=== PATIENT | female | born 1990 | race Caucasian/White ===

== ENCOUNTER 2024-06-05 12:55 | Outpatient (CLI) | payer BC, SELFPAY ==
--- NOTE | 2024-06-05 13:00 | CRLHL7_ITS ---
For Patients: As a result of the Cures Act, medical imaging exams and procedure reports are released immediately into your electronic medical record. You may view this report before your referring provider. If you have questions, please contact your health care provider. INDICATION: First trimester scan, establish dates. COMPARISON: None. TECHNIQUE: Real-time munoz-scale imaging of the pelvis was performed. FINDINGS: Sonographic imaging demonstrates a single living intrauterine gestation. The embryo demonstrates a regular cardiac rate measuring 169 beats per minute. The embryo`s crown-rump length measurement of 2.3 cm corresponds to a gestational age of 9 weeks 0 days with a sonographic due date of 01/08/2025. There is a normal-appearing yolk sac. There are no gross abnormalities noted within the embryo at this early state of development. The gestational sac has a normal appearance. There is a 9 x 7 x 2 millimeter perigestational hemorrhage. The amount of fluid within the sac appears appropriate for gestational age. The cervix is closed. The myometrium appears normal. The ovaries are of normal size. Corpus luteal cyst right ovary. There are no suspicious fluid collections noted in the cul-de-sac. IMPRESSION: Single living intrauterine with sonographic gestational age 9 weeks 0 days and sonographic due date of 01/08/2025. Subchorionic hemorrhage measures 9 x 7 x 2 millimeters. Dictated by Skip Jenkins MD @ 06/09/2024 6:14:56 AM (Electronically Signed)
== END 2024-06-05 12:56 | disposition home or self-care (01) ==
LOC: US 12:56
PROVIDERS: PCP Family Medicine; Visit Provider Registered Nurse
DX: Z34.91 Encounter for supervision of normal pregnancy, unspecified, first trimester (principal); Z3A.09 9 weeks gestation of pregnancy
CPT/HCPCS: 76817; 82565; 82570; 84156; 84450; 84460; 84520; 86703; 86706; 86803; 86850; 86900; 86901; 87086; 87340; 87491; 87591

== ENCOUNTER 2024-06-05 14:24 | Outpatient (CLI) | payer BC, SELFPAY ==
--- OUTSIDE RECORDS SUMMARY | 2024-06-05 14:30 | XMS_ITS | Clinical Summary ---
Author Organization [facility] Address [address] [place] [address] Care Team Providers Care Virtual Assistant Name Role Phone Katt Ramirez MD Primary Care Provider +1- [phone] Shaylee Guillaume MD Unavailable Allergies Active Allergy Reactions Criticality Noted Date Comments Ragweeds Unknown 04/24/2013 Medications Medication Sig Dispensed Refills Start Date End Date Status MEDICATION CANNOT BE REORDERED - PLEASE MANUALLY REORDER AND DISCONTINUE THE OLD ORDER [SULFURIC ACID-SULFONAT. PHENOL (DEBACTEROL) 30-50 % SOLN] Debacterol 30-50 % Mouth/Throat Solution. Apply once to canker sore PRN. 10/06/2014 Active hydrocortisone (CORTAID) 1 % external ointmentIndications: Eczema, unspecified type Apply topically nightly as needed (eczema) 56 g 09/22/2022 Active Additional Information Patient not taking.Reported on 10/16/2023 Active Problems No known active problems Immunizations Name Administration Dates Next Due DT (PEDS <7y) 12/24/2002 DTAP (<7y) 10/01/1995, 2,03/25/1991,01/22,1990 DTaP, Unspecified 10/01/1995, 2,03/25/1991,01/22,1990 Flu, Unspecified 09/05/2016, 5,06/02/2014,06/06 HEPATITIS A (PEDS 12M-18Y) 10/26/2006 HIB(PRP-OMP)(PedvaxHIB) 09/30/1992,09/18,02/21/1991,11/23 HIB, Unspecified 09/30/1992, 2,02/21/1991,11/23 HPV Quadrivalent 05/16/2007,03/07/2007, 7 HepA, Unspecified 05/16/2007,10/26/2006 HepB, Unspecified 02/23/1994,08/29/1993,04/21/19 93 Hepatitis A (ADULT 19+) 05/16/2007 Hepatitis B, Adult 02/23/1994,08/29/1993, 993 Influenza (IIV3) PF 06/02/2014,06/06/2008 Influenza Vaccine >6 months,quad, PF 09/22/2022 Influenza Vaccine, 6+MO IM (QUADRIVALENT W/PRESERVATIVES) 09/05/2016,06/21/2015 MMR 04/22/2009,10/01/1995 Meningococcal ACWY (Menactra??) 10/26/2006 OPV, trivalent, live 10/01/1995,03/18/19 92,03/25/1991,01/22,1990 TD,PF 7+ (Tenivac) 09/05/2016 TDAP (Adacel,Boostrix) 10/31/2017,10/26/2006 Family History Medical History Relation Comments No Known Problems Brother Hyperlipidemia Father Chronic Obstructive Pulmonary Disease Maternal G randfather Other Cancer Maternal Grandmother Breast Cancer Mother Diabetes Mother Hyperlipidemia Mother Hypertension Mother Heart Disease Paternal Grandfather Lung Cancer Paternal Grandmother Relation Status Comments Brother Alive Father Alive Maternal Grandfather Maternal Grandmother Mother Alive Other uterine cancer Paternal Grandfather Paternal Grandmother Social History Tobacco Use Types Packs/Day Years Used Date Smoking Tobacco: Never Smokeless Tobacco: Never Tobacco Cessation:Counseling Given: Not Answered Alcohol Use Standard Drinks/Week Comments Yes 0 (1 standard drink = 0.6 oz pur e alcohol) 1 drink/month Social Connection and Isolat ion Panel [NHANES] Answer Date Recorded In a typical week, how many times do you talk on the phone with family, friends, or neighbors? Three times a week 10/15/2023 How often do you get togethe r with friends or relatives? Once a week 10/15/2023 How often do you attend chur ch or lutheran services? Never 10/15/2023 Do you belong to any clubs o r organizations such as latter day groups, unions, fraternal or athletic groups, or school groups? Yes 10/15/2023 How often do you attend meet ings of the clubs or organizations you belong to? More than 4 times per year 10/15/2023 Are you , , di vorced, , never , or living with a partner? 10/15/2023 AUDIT-C Answer Date Recorded Q1: How often do you have a drink containing alc ohol? Monthly or less 10/15/2023 Q2: How many drinks containi ng alcohol do you have on a typical day when you are drinking? 1 or 2 10/15/2023 Q3: How often do you have si x or more drinks on one occasion? Never 10/15/2023 PHQ-2 Answer Date Recorded PHQ-2 Score 0 10/16/2023 [facility] - Occupational Stress Questionnaire Answer Date Recorded Do you feel stress - tense, restless, nervous, or anxious, or unable to sleep at night because your mind is troubled all the time - these days? Only a little 10/15/2023 Exercise Vital Sign Answer Date Recorde d On average, how many days pe r week do you engage in moderate to strenuous exercise (like a brisk walk)? 5 days 10/15/2023 On average, how many minutes do you engage in exercise at this level? 40 min 10/15/2023 Adolescent Education Answer Date Record ed Getting School Help Needed Not on file 05/12 Food Insecurity Answer Date Recorded Within the past 12 months, d id you worry that your food would run out before you got money to buy more? No 10/15/2023 Within the past 12 months, d id the food you bought just not last and you didn? t have money to get more? No 10/15/2023 Housing Stability Answer Date Recorded Do you have housing? (Mellisa g is defined as stable permanent housing and does not include staying ouside in a car, in a tent, in an abandoned building, in an overnight mcfp, or couch-surfing.) Yes 10/15/2023 Are you worried about losing your housing? No 10/15/2023 Financial Resource Strain Answer Date R ecorded Within the past 12 months, h ave you or your family members you live with been unable to get utilities (heat, electricity) when it was really needed? No 10/15/2023 Transportation Needs Answer Date Record ed Within the past 12 months, h as lack of transportation kept you from medical appointments, getting your medicines, non-medical meetings or appointments, work, or from getting things that you need? No 10/15/2023 Interpersonal Safety Answer Date Record ed Do you feel physically and e motionally safe where you currently live? Yes 10/16/2023 Within the past 12 months, h ave you been hit, slapped, kicked or otherwise physically hurt by someone? No 10/16/2023 Within the past 12 months, h ave you been humiliated or emotionally abused in other ways by your partner or ex-partner? No 10/16/2023 Sex and Gender Information Value Date Recorded Sex Assigned at Not on file Gender Identity Not on file Sexual Orientation Not on file Last Filed Vital Signs Vital Sign Reading Time Taken Comments Blood Pressure 122/80 10/16/2023 7:45 AM OBEDIENCE TRAINER Pulse 62 10/16/2023 7:45 AM OBEDIENCE TRAINER Temperature 36.4 ??C (97.5 ??F) 10/16/2023 7:45 AM CS T Respiratory Rate 12 10/16/2023 7:45 AM OBEDIENCE TRAINER Oxygen Saturation 100% 10/16/2023 7:45 AM OBEDIENCE TRAINER Inhaled Oxygen Concentration - - Weight 62.1 kg (137 lb) 10/16/2023 7:45 AM OBEDIENCE TRAINER Height 161.3 cm (5' 3.5) 10/16/2023 7:45 AM OBEDIENCE TRAINER Body Mass Index 23.89 10/16/2023 7:45 AM OBEDIENCE TRAINER Plan of Treatment Health Maintenance Due Date Last Done Comments HIV SCREENING 2005 COVID-19 Vaccine ( season) 2024 07/12/2021 INFLUENZA VACCINE (#1) 2024 , 09/05/2016, 09/05/2016, Additional history exists ANNUAL REVIEW OF HM ORDERS 10/16/2024 10/16/2023 YEARLY PREVENTIVE VISIT 10/16/2024 10/16/19 24, 09/22/2022, 10/31/2017, Additional history exists HPV TEST 09/22/2025 09/22/2022, 04/24/2013 PAP 09/22/2025 09/22/2022, 10/18, 10/31/2017, Additional history exists ADVANCE CARE PLANNING 09/22/2027 09/22/2022 DTAP/TDAP/TD IMMUNIZATION (9 - Td or Tdap) 11/01/2027 10/31/2017, 09/05/2016, 10/26/2006, Additional history exists RSV VACCINE (1 - 1-dose 75+ series) 2065 HEPATITIS B IMMUNIZATION Completed 994, 02/23/1994, 08/29/1993, Additional history exists MENINGITIS IMMUNIZATION Completed 10/26/2006 HPV IMMUNIZATION Completed 09/05/2016, , 03/07/2007, Additional history exists PHQ-2 (once per calendar year) Completed 10/16/2023, 09/22/2022 HEPATITIS C SCREENING Discontinued Pneumococcal Vaccine: Pediatrics (0 to 5 Years) and At-Risk Patients (6 to 64 Years) Aged Out No longer eligible based on patient's age to complete this topic RSV MONOCLONAL ANTIBODY Aged Out No l onger eligible based on patient's age to complete this topic Procedures Procedure Name Priority Date/Time Associated Diagnosis Comments GYNECOLOGIC CYTOLOGY Routine 09/22/2022 8:01 AM OBEDIENCE TRAINER Screening for condition HPV HIGH RISK TYPES DNA CERVICAL Routine 09/22/2022 8:01 AM OBEDIENCE TRAINER Screening for condition from Last 3 Months or Most Recently Relevant to Health Maintenance Results * Pap screen with HPV - recommended age 30 - 65 years (09/22/2022 8:01 AM OBEDIENCE TRAINER) Interpretation Negative for Intraepithelial Lesion or Malignancy (NILM) 09/26/2022 3:10 PM OBEDIENCE TRAINER [facility] Comment Papanicolaou Test Limitations: Cervical cytology is a screening test with limited sensitivity, and regular screening is critical for cancer prevention. Pap tests are primarily effective for the diagnosis/prevent ion of squamous cell carcinoma, not adenocarcinoma or other cancers. 09/26/2022 3:10 PM OBEDIENCE TRAINER [facility] Specimen Adequacy Satisfactory for evaluation, endocervical/wilson sformation zone component present 09/26/2022 3:10 PM OBEDIENCE TRAINER [facility] Clinical Information none 09/26/2022 3:10 PM OBEDIENCE TRAINER [facility] LMP/Menopause Date 08/29/2022 09/26/2022 3:10 PM OBEDIENCE TRAINER [facility] Reflex Testing Yes regardless of result 09/26/2022 3:10 PM OBEDIENCE TRAINER [facility] Previous Abnormal? No 09/26/2022 3:10 PM OBEDIENCE TRAINER [facility] Performing Labs The technical component of this testing was completed at [facility] 09/26/2022 3:10 PM OBEDIENCE TRAINER [facility] Brushing CERVIX UTERI STRUCTURE / Unknown Non-blood Collection / Unknown 09/22/2022 8:01 AM OBEDIENCE TRAINER 09/22/2022 8:07 AM OBEDIENCE TRAINER Shaylee [facility] Specialty Lab [address] [facility], [address] [place] [id number], [facility] [phone] * HPV High Risk Types DNA Cervical (09/22/2022 8:01 AM OBEDIENCE TRAINER) Other HR HPV Negative Negative 09/28/2022 1:34 PM OBEDIENCE TRAINER [facility] HPV16 DNA Negative Negative 09/28/2022 1:34 PM OBEDIENCE TRAINER [facility] HPV18 DNA Negative Negative 09/28/2022 1:34 PM OBEDIENCE TRAINER [facility] FINAL DIAGNOSIS This patient's sample is negative for HPV DNA. This test was developed and its performance characteristics determined by the [facility], Molecular Diagnostics Laboratory. It has not been cleared or approved by the FDA. The laboratory is regulated under CLIA as qualified to perform high-complexity testing. This test is used for clinical purposes. It should not be regarded as investigational or for research. METHODOLOGY: The Mio Penny 4800 system uses automated extraction, simultaneous amplification of HPV (L1 region) and beta-globin, followed by real time detection of fluorescent labeled HPV and beta globin using specific oligonucleotide probes. The test specifically identifies types HPV 16 DNA and HPV 18 DNA while concurrently detecting the rest of the high risk types (31, 33, 35, 39, 45, 51, 52, 56, 58, 59, 66 or 68). COMMENTS: This test is not intended for use as a screening device for woman under age 30 with normal cervical cytology. Results should be correlated with cytologic and histologic findings. Close clinical followup is recommended. 09/28/2022 1:34 PM OBEDIENCE TRAINER [facility] Brushing CERVIX UTERI STRUCTURE / Unknown Non-blood Collection / Unknown 09/22/2022 8:01 AM OBEDIENCE TRAINER 09/27/2022 9:42 AM OBEDIENCE TRAINER Shaylee Guillaume MD LAB - BLOOD ORDERABL ES [facility] Molecular Diagnostics [address] [facility], [address] [phone], [facility] [phone] from Last 3 Months or Most Recently Relevant to Health Maintenance Care Teams Virtual Assistant Relationship Specialty Start Date End Date Katt Ramirez MD [address] [place] [address] PCP - General Family Practice 10/12/14 [place] [address] [place] [address] Assigned PCP 08/30/22
--- OUTSIDE RECORDS SUMMARY | 2024-06-05 14:30 | XMS_ITS | Referral Summary ---
Author Organization [facility] Address [address] [place] [address] Care Team Providers Care Pharmacy Delivery Driver Name Role Phone Katt Ramirez MD Primary Care Provider +1- [phone] Shaylee Guillaume MD Unavailable Allergies Active Allergy [...] TD,PF 7+ (Tenivac) 09/05/2016 TDAP (Adacel,Boostrix) 10/31/2017,10/26/2006 Social History Tobacco Use Types Packs/Day Years [...] week 10/15/2023 How often do you attend [facility] or samaritan services? Never 10/15/2023 Do you belong to any clubs o r organizations such as buddhism groups, unions, fraternal or athletic groups, or [...] Answer Date Recorded PHQ-2 Score 0 10/16/2023 [facility] - Occupational Stress [...] Answer Date Recorded Do you have housing? (Housin g is defined as stable permanent housing and does not include staying ouside in a car, in a tent, in an abandoned building, in an overnight intermediate, or couch-surfing.) Yes 10/15/2023 Are you worried [...] Comments Blood Pressure 122/80 10/16/2023 7:45 AM HARP MAKER Pulse 62 10/16/2023 7:45 AM HARP MAKER Temperature 36.4 ??C (97.5 ??F) 10/16/2023 7:45 AM CS T Respiratory Rate 12 10/16/2023 7:45 AM HARP MAKER Oxygen Saturation 100% 10/16/2023 7:45 AM HARP MAKER Inhaled Oxygen Concentration - - Weight 62.1 kg (137 lb) 10/16/2023 7:45 AM HARP MAKER Height 161.3 cm (5' 3.5) 10/16/2023 7:45 AM HARP MAKER Body Mass Index 23.89 10/16/2023 7:45 AM HARP MAKER Plan of Treatment Not on file Procedures Procedure Name Priority Date/Time Associated Diagnosis Comments GYNECOLOGIC CYTOLOGY Routine 09/22/2022 8:01 AM HARP MAKER Screening for condition HPV HIGH RISK TYPES DNA CERVICAL Routine 09/22/2022 8:01 AM HARP MAKER Screening for condition from Last 3 Months or Most Recently Relevant to Health Maintenance Results * Pap screen with HPV - recommended age 30 - 65 years (09/22/2022 8:01 AM HARP MAKER) Interpretation Negative for Intraepithelial Lesion or Malignancy (NILM) 09/26/2022 3:10 PM HARP MAKER [facility] Comment Papanicolaou Test Limitations: Cervical cytology is a screening test with limited sensitivity, and regular screening is critical for cancer prevention. Pap tests are primarily effective for the diagnosis/prevent ion of squamous cell carcinoma, not adenocarcinoma or other cancers. 09/26/2022 3:10 PM HARP MAKER [facility] Specimen Adequacy Satisfactory for evaluation, endocervical/wilson sformation zone component present 09/26/2022 3:10 PM HARP MAKER [facility] Clinical Information none 09/26/2022 3:10 PM HARP MAKER [facility] LMP/Menopause Date 08/29/2022 09/26/2022 3:10 PM HARP MAKER [facility] Reflex Testing Yes regardless of result 09/26/2022 3:10 PM HARP MAKER [facility] Previous Abnormal? No 09/26/2022 3:10 PM HARP MAKER [facility] Performing Labs The technical component of this testing was completed at [facility] 09/26/2022 3:10 PM [facility] Brushing CERVIX UTERI STRUCTURE / Unknown Non-blood Collection / Unknown 09/22/2022 8:01 AM HARP MAKER 09/22/2022 8:07 AM HARP MAKER Sh[facility]lee [facility] Specialty Lab [address] [facility], [address] [phone], [facility] [phone] * HPV High Risk Types DNA Cervical (09/22/2022 8:01 AM HARP MAKER) Other HR HPV Negative Negative 09/28/2022 1:34 PM HARP MAKER [facility] HPV16 DNA Negative Negative 09/28/2022 1:34 PM HARP MAKER [facility] HPV18 DNA Negative Negative 09/28/2022 1:34 PM HARP MAKER [facility] FINAL DIAGNOSIS This patient's sample is negative for HPV DNA. This test was developed and its performance characteristics determined by the [facility], Molecular Diagnostics Laboratory. It has not been [...] clinical followup is recommended. 09/28/2022 1:34 PM HARP MAKER [facility] Brushing CERVIX UTERI STRUCTURE / Unknown Non-blood Collection / Unknown 09/22/2022 8:01 AM HARP MAKER 09/27/2022 9:42 AM HARP MAKER Shaylee Guillaume MD LAB - BLOOD ORDERABL ES [facility] Molecular [facility] [address] [facility], [address] [place] [phone], [facility] [phone] from Last 3 Months or Most Recently Relevant to Health Maintenance Care Teams Pharmacy Delivery Driver Relationship Specialty Start Date End Date Katt Ramirez MD [address] [place] [address] PCP - General Family Practice 10/12/14 [place] [address] [place] [address] Assigned PCP 08/30/22
[2024-06-05 19:12] LABS: Chlamydia DNA Amplified* NOT DETECTED (No Detected); GC DNA Amplified* NOT DETECTED (No Detected)
== END 2024-06-05 14:25 | disposition home or self-care (01) ==
PROVIDERS: PCP Family Medicine; Visit Provider Physician Assistant
DX: Z34.91 Encounter for supervision of normal pregnancy, unspecified, first trimester (principal); Z3A.09 9 weeks gestation of pregnancy
CPT/HCPCS: 82565; 82570; 84156; 84450; 84460; 84520; 86592; 86703; 86704; 86706; 86762; 86787; 86803; 86850; 86900; 86901; 87086; 87340; 87491; 87591

== ENCOUNTER 2024-06-16 07:30 | Outpatient (CLI) | payer BC, SELFPAY ==
--- OUTSIDE RECORDS SUMMARY | 2024-06-16 14:58 | XMS_ITS | Referral Summary ---
Author Organization [facility] Address [address] [place] [address] Care Team Providers Care Learning Coordinator Name Role Phone Katt Ramirez MD Primary Care Provider +1- [phone] Shaylee Guillaume MD Unavailable Allergies Active Allergy Reactions Criticality Noted Date Comments Ragweeds Unknown 04/24/2013 Medications MEDICATION CANNOT BE REORDERED - PLEASE MANUALLY REORDER AND DISCONTINUE THE OLD ORDER [SULFURIC ACID-SULFONAT. PHENOL (DEBACTEROL) 30-50 % SOLN] Debacterol 30-50 % Mouth/Throat Solution. Apply once to canker sore PRN. 5 Active hydrocortisone (CORTAID) 1 % external ointmentIndicati ons:Eczema, unspecified type Apply topically nightly as needed (eczema) 56 g 3 Active Additional Information Patient not taking.Reported on [...] 10/15/2023 How often do you attend [facility] or jehovah's witness services? Never 10/15/2023 Do you belong to any clubs o r organizations such as tenriism groups, unions, fraternal or athletic groups, or [...] Answer Date Recorded PHQ-2 Score 0 10/16/2023 [facility] - Occupational Stress [...] Answer Date Recorded Do you have housing? (Williein g is defined as stable permanent housing and does not include staying ouside in a car, in a tent, in an abandoned building, in an overnight half-way, or couch-surfing.) Yes 10/15/2023 Are you worried [...] by your partner or ex-partner? No 10/16/2023 Comments No Sex and Gender Information Value Date Recorded Sex Assigned at Not on file Legal Sex Female 10:32 AM CDT Gender Identity Not on file Sexual Orientation Not on file Last Filed Vital Signs Vital Sign Reading Time Taken Comments Blood Pressure 122/80 10/16/2023 7:45 AM INSPECTOR BRAKE LINING Pulse 62 10/16/2023 7:45 AM INSPECTOR BRAKE LINING Temperature 36.4 ??C (97.5 ??F) 10/16/2023 7:45 AM CS T Respiratory Rate 12 10/16/2023 7:45 AM INSPECTOR BRAKE LINING Oxygen Saturation 100% 10/16/2023 7:45 AM INSPECTOR BRAKE LINING Inhaled Oxygen Concentration - - Weight 62.1 kg (137 lb) 10/16/2023 7:45 AM INSPECTOR BRAKE LINING Height 161.3 cm (5' 3.5) 10/16/2023 7:45 AM INSPECTOR BRAKE LINING Body Mass Index 23.89 10/16/2023 7:45 AM INSPECTOR BRAKE LINING Plan of Treatment Not on file Procedures Procedure Name Priority Date/Time Associated Diagnosis Comments GYNECOLOGIC CYTOLOGY Routine 09/22/2022 8:01 AM INSPECTOR BRAKE LINING Screening for condition HPV HIGH RISK TYPES DNA CERVICAL Routine 09/22/2022 8:01 AM INSPECTOR BRAKE LINING Screening for condition from Last 3 Months or Most Recently Relevant to Health Maintenance Results * Pap screen with HPV - recommended age 30 - 65 years (09/22/2022 8:01 AM INSPECTOR BRAKE LINING) Interpretation Negative for Intraepithelial Lesion or Malignancy (NILM) 09/26/2022 3:10 PM INSPECTOR BRAKE LINING [facility] Comment Papanicolaou Test Limitations: Cervical cytology is a screening test with limited sensitivity, and regular screening is critical for cancer prevention. Pap tests are primarily effective for the diagnosis/prevent ion of squamous cell carcinoma, not adenocarcinoma or other cancers. 09/26/2022 3:10 PM INSPECTOR BRAKE LINING [facility] Specimen Adequacy Satisfactory for evaluation, endocervical/wilson sformation zone component present 09/26/2022 3:10 PM INSPECTOR BRAKE LINING [facility] Clinical Information none 09/26/2022 3:10 PM INSPECTOR BRAKE LINING [facility] LMP/Menopause Date 08/29/2022 09/26/2022 3:10 PM INSPECTOR BRAKE LINING [facility] Reflex Testing Yes regardless of result 09/26/2022 3:10 PM INSPECTOR BRAKE LINING [facility] Previous Abnormal? No 09/26/2022 3:10 PM INSPECTOR BRAKE LINING [facility] Performing Labs The technical component of this testing was completed at [facility] 09/26/2022 3:10 PM INSPECTOR BRAKE LINING [facility] Brushing CERVIX UTERI STRUCTURE / Unknown Non-blood Collection / Unknown 09/22/2022 8:01 AM INSPECTOR BRAKE LINING 09/22/2022 8:07 AM INSPECTOR BRAKE LINING Shaylee [facility] Final Result [facility] Specialty Lab [address] [facility], [address] [place] [phone], [facility] [phone] * HPV High Risk Types DNA Cervical (09/22/2022 8:01 AM INSPECTOR BRAKE LINING) Other HR HPV Negative Negative 09/28/2022 1:34 PM INSPECTOR BRAKE LINING [facility] HPV16 DNA Negative Negative 09/28/2022 1:34 PM INSPECTOR BRAKE LINING [facility] HPV18 DNA Negative Negative 09/28/2022 1:34 PM INSPECTOR BRAKE LINING [facility] FINAL DIAGNOSIS This patient's sample is negative for HPV DNA. This test was developed and its performance characteristics determined by the [facility], Molecular Diagnostics Laboratory. It has not been [...] clinical followup is recommended. 09/28/2022 1:34 PM INSPECTOR BRAKE LINING [facility] Brushing CERVIX UTERI STRUCTURE / Unknown Non-blood Collection / Unknown 09/22/2022 8:01 AM INSPECTOR BRAKE LINING 09/27/2022 9:42 AM INSPECTOR BRAKE LINING us Shaylee Guillaume MD LAB - BLOOD ORDERABLES Final Res ult [facility] Molecular Diagn[facility] [address] [facility], [address] [place] [phone], [facility] [phone] from Last 3 Months or Most Recently Relevant to Health Maintenance Insurance [facility] Care Teams Learning Coordinator Relationship Specialty Start Date End Date Katt Ramirez MD [address] [place] [address] PCP - General Family Practice 10/12/14 [place] [address] [place] [address] Assigned PCP 08/30/22
--- OUTSIDE RECORDS SUMMARY | 2024-06-16 14:58 | XMS_ITS | Clinical Summary ---
Author Organization [facility] Address [address] [place] [address] Care Team Providers Care Wildlife Veterinarian Name Role Phone Katt Ramirez MD Primary Care Provider [phone] Shaylee Guillaume MD Unavailable Allergies Active Allergy [...] often do you attend chur ch or bahai services? Never 10/15/2023 Do you belong to any clubs o r organizations such as sikh groups, unions, fraternal or athletic groups, or [...] PHQ-2 Score 0 10/16/2023 [facility] - Occupational Stress Questionnaire Answer Date [...] in an abandoned building, in an overnight usp, or couch-surfing.) Yes 10/15/2023 Are you worried [...] Comments Blood Pressure 122/80 10/16/2023 7:45 AM CUSTOMS COMPLIANCE SPECIALIST Pulse 62 10/16/2023 7:45 AM CUSTOMS COMPLIANCE SPECIALIST Temperature 36.4 ??C (97.5 ??F) 10/16/2023 7:45 AM CS T Respiratory Rate 12 10/16/2023 7:45 AM CUSTOMS COMPLIANCE SPECIALIST Oxygen Saturation 100% 10/16/2023 7:45 AM CUSTOMS COMPLIANCE SPECIALIST Inhaled Oxygen Concentration - - Weight 62.1 kg (137 lb) 10/16/2023 7:45 AM CUSTOMS COMPLIANCE SPECIALIST Height 161.3 cm (5' 3.5) 10/16/2023 7:45 AM CUSTOMS COMPLIANCE SPECIALIST Body Mass Index 23.89 10/16/2023 7:45 AM CUSTOMS COMPLIANCE SPECIALIST Plan of Treatment Health Maintenance Due Date [...] Comments GYNECOLOGIC CYTOLOGY Routine 09/22/2022 8:01 AM CUSTOMS COMPLIANCE SPECIALIST Screening for condition HPV HIGH RISK TYPES DNA CERVICAL Routine 09/22/2022 8:01 AM CUSTOMS COMPLIANCE SPECIALIST Screening for condition from Last 3 Months or Most Recently Relevant to Health Maintenance Results * Pap screen with HPV - recommended age 30 - 65 years (09/22/2022 8:01 AM CUSTOMS COMPLIANCE SPECIALIST) Interpretation Negative for Intraepithelial Lesion or Malignancy (NILM) 09/26/2022 3:10 PM CUSTOMS COMPLIANCE SPECIALIST [facility] Comment Papanicolaou Test Limitations: Cervical cytology is a screening test with limited sensitivity, and regular screening is critical for cancer prevention. Pap tests are primarily effective for the diagnosis/prevent ion of squamous cell carcinoma, not adenocarcinoma or other cancers. 09/26/2022 3:10 PM CUSTOMS COMPLIANCE SPECIALIST [facility] Specimen Adequacy Satisfactory for evaluation, endocervical/wilson sformation zone component present 09/26/2022 3:10 PM CUSTOMS COMPLIANCE SPECIALIST [facility] Clinical Information none 09/26/2022 3:10 PM CUSTOMS COMPLIANCE SPECIALIST [facility] LMP/Menopause Date 08/29/2022 09/26/2022 3:10 PM CUSTOMS COMPLIANCE SPECIALIST [facility] Reflex Testing Yes regardless of result 09/26/2022 3:10 PM CUSTOMS COMPLIANCE SPECIALIST [facility] Previous Abnormal? No 09/26/2022 3:10 PM CUSTOMS COMPLIANCE SPECIALIST [facility] Performing Labs The technical component of this testing was completed at [facility] 09/26/2022 3:10 PM [facility] Brushing CERVIX UTERI STRUCTURE / Unknown Non-blood Collection / Unknown 09/22/2022 8:01 AM CUSTOMS COMPLIANCE SPECIALIST 09/22/2022 8:07 AM CUSTOMS COMPLIANCE SPECIALIST Shaylee HENRY - GERMÁN AP Final Result [facility] Specialty Lab [address] [facility], [address] [address], [facility] [phone] * HPV High Risk Types DNA Cervical (09/22/2022 8:01 AM CUSTOMS COMPLIANCE SPECIALIST) Other HR HPV Negative Negative 09/28/2022 1:34 PM CUSTOMS COMPLIANCE SPECIALIST [facility] HPV16 DNA Negative Negative 09/28/2022 1:34 PM CUSTOMS COMPLIANCE SPECIALIST [facility] HPV18 DNA Negative Negative 09/28/2022 1:34 PM CUSTOMS COMPLIANCE SPECIALIST [facility] FINAL DIAGNOSIS This patient's sample is negative for HPV DNA. This test was developed and its performance characteristics determined by the [facility]. It has not [...] clinical followup is recommended. 09/28/2022 1:34 PM CUSTOMS COMPLIANCE SPECIALIST [facility] Brushing CERVIX UTERI STRUCTURE / Unknown Non-blood Collection / Unknown 09/22/2022 8:01 AM CUSTOMS COMPLIANCE SPECIALIST 09/27/2022 9:42 AM CUSTOMS COMPLIANCE SPECIALIST us Shaylee Guillaume MD LAB - BLOOD ORDERABLES Final Res ult [facility] [address] [facility], [address] [place] [address], [facility] [phone] from Last 3 Months or Most Recently Relevant to Health Maintenance Insurance [facility] BCBS OF [place] Care Teams Wildlife Veterinarian Relationship Specialty Start Date End Date Katt Ramirez MD [address] [place] [address] PCP - General Family Practice 10/12/14 [place] [address] [place] [address] Assigned PCP 08/30/22
== END 2024-06-16 07:31 | disposition home or self-care (01) ==
LOC: NFLDREF 14:56
PROVIDERS: PCP Family Medicine; Referring Provider Family Medicine; Visit Provider Physician Assistant
DX: Z34.90 Encounter for supervision of normal pregnancy, unspecified, unspecified trimester (principal)
CPT/HCPCS: 82570; 84156

== ENCOUNTER 2024-08-21 12:04 | Outpatient (CLI) | payer BC, SELFPAY ==
--- NOTE | 2024-08-21 12:15 | CRLHL7_ITS ---
For Patients: As a result of the Century Cures Act, medical imaging exams and procedure reports are released immediately into your electronic medical record. You may view this report before your referring provider. If you have questions, please contact your health care provider. INDICATION: Evaluate anatomy. COMPARISON: 06/05/2024 TECHNIQUE: Real time munoz scale imaging of the fetus was performed as well as color Doppler analysis of the umbilical vessels. FINDINGS: Sonographic imaging demonstrates a single living intrauterine gestation. Fetus demonstrates a regular cardiac rate of 138 beats per minute. Fetus has a vertex position. The placenta lies anterior without evidence of placenta previa. Amniotic fluid volume appears normal. Single deepest vertical pocket: 4.2 cm. The cervix is closed and measures 4.1 cm in length. The composite ultrasound gestational age is calculated at 20 weeks 2 days with an estimated sonographic due date of 01/06/2025. The estimated weight is 345 grams which lies at the 54th %. The following biometric measurements were obtained: Biparietal diameter: 4.7 cm/20 weeks 0 days 46th% Head circumference: 17.5 cm/20 weeks 0 days 37th% Abdominal circumference: 15.0 cm/20 weeks 2 days 47th% Femur length: 3.3 cm/20 weeks 3 days 54th% The HC/AC ratio measures: 1.17 range (1.07-1.25) On anatomic survey, there is a normal appearance of the cerebral ventricles, cavum septi pellucidi, cisterna magna and cerebellum. The nose, lips, and facial profile appear normal. The cervical, thoracic and lumbar spine are well visualized and appear normal. There is a normal four-chamber heart view and the left and right ventricular outflow tracts appear normal. The diaphragm and stomach appear normal. The kidneys and bladder also appear normal. There is a 2-vessel cord and cord insertion site. The four extremities appear normal. IMPRESSION: Concordance of clinical and sonographic dating. Single umbilical artery. Remainder of the anatomic survey is normal. Dictated by Skip Jenkins MD @ 08/21/2024 2:27:10 PM (Electronically Signed)
== END 2024-08-21 12:05 | disposition home or self-care (01) ==
PROVIDERS: PCP Family Medicine; Visit Provider Midwife
DX: Z34.92 Encounter for supervision of normal pregnancy, unspecified, second trimester (principal); Z3A.20 20 weeks gestation of pregnancy
CPT/HCPCS: 76805

== ENCOUNTER 2024-09-11 14:38 | Outpatient (CLI) | payer BC, SELFPAY | END 2024-09-11 14:39 | disposition home or self-care (01) | LOC: US 14:40 | PROVIDERS: PCP Family Medicine; Visit Provider Advanced Practice Midwife | DX: O16.2 Unspecified maternal hypertension, second trimester (principal); Z3A.23 23 weeks gestation of pregnancy | CPT/HCPCS: 76811 ==

== ENCOUNTER 2024-10-16 13:40 | Outpatient (CLI) | payer BC, SELFPAY ==
--- NOTE | 2024-10-16 14:00 | CRLHL7_ITS ---
For Patients: As a result of the Century Cures Act, medical imaging exams and procedure reports are released immediately into your electronic medical record. You may view this report before your referring provider. If you have questions, please contact your health care provider. LIMITED OBSTRETRICAL ULTRASOUND FOLLOW-UP, 10/16/2024 LMP: 04/02/2024. NICOLETTE by LMP: NICOLETTE by US: 01/07/2025. INDICATION: Growth. Single umbilical artery. TECHNIQUE: Real time munoz scale imaging of the fetus was performed. Transabdominal. COMPARISONS: 09/11/2024 MFM, 08/21/2024, 06/05/2024. Cervix: 3.0: Visualized. Positioning: Vertex. Amniotic Fluid: 4.6 cm SDP (N: greater than 2 x 1 cm). Placenta: Anterior, TA. Heart Rate: 135 bpm. BIOMETRY BPD: 7.0 cm. 28 w, 1 d, 35.8 percent. HC: 25.7 cm. 28 w, 0 d, 15.1 percent. AC: 23.7 cm. 28 w, 0 d, 38.1 percent. FL: 5.2 cm. 27 w, 6 d, 25.9 percent. FL/AC ratio: 22.0 percent. HC/AC ratio: 1.1. EFW: 1150 grams, 2 lbs, 9 oz. age by this US: 28 w, 0 d. NICOLETTE by this US: 01/08/2025. Percentile by NICOLETTE: 29.7 percent. IMPRESSION: 1. Sonographic gestational age 28 weeks 0 days and sonographic due date of 01/08/2025. Good correlation with dates. Normal interval growth. 2. Estimated weight 38th percentile. Abdominal circumference 38th percentile. Skip Jenkins M.D. Diagnostic Radiologist [email or web address] CAROL/william DW/Dictated by: Skip Jenkins MD @ 10/18/2024 6:46:00 AM (Electronically Signed)
== END 2024-10-16 13:41 | disposition home or self-care (01) ==
LOC: US 13:40
PROVIDERS: PCP Family Medicine; Visit Provider Advanced Practice Midwife
DX: Z34.93 Encounter for supervision of normal pregnancy, unspecified, third trimester (principal); Z3A.28 28 weeks gestation of pregnancy
CPT/HCPCS: 76816; 86592

== ENCOUNTER 2024-10-16 13:51 | Outpatient (CLI) | payer BC, SELFPAY | END 2024-10-16 13:52 | disposition home or self-care (01) | LOC: NFLDREF 10-19 05:25 | PROVIDERS: PCP Family Medicine; Referring Provider Family Medicine; Visit Provider Midwife | DX: Z34.93 Encounter for supervision of normal pregnancy, unspecified, third trimester (principal); Z3A.28 28 weeks gestation of pregnancy | CPT/HCPCS: 86592 ==

== ENCOUNTER 2024-10-23 07:58 | Outpatient (CLI) | payer BC, SELFPAY | END 2024-10-23 07:59 | disposition home or self-care (01) | LOC: NFLDREF 10-24 07:31 | PROVIDERS: PCP Family Medicine; Referring Provider Family Medicine; Visit Provider Advanced Practice Midwife | DX: O99.810 Abnormal glucose complicating pregnancy (principal) | CPT/HCPCS: 82951; 82952 ==

== ENCOUNTER 2024-11-27 13:54 | Outpatient (CLI) | payer BC, SELFPAY ==
--- NOTE | 2024-11-27 14:00 | CRLHL7_ITS ---
For Patients: As a result of the Cures Act, medical imaging exams and procedure reports are released immediately into your electronic medical record. You may view this report before your referring provider. If you have questions, please contact your health care provider. OB ULTRASOUND FOLLOW-UP LIMITED, 11/27/2024 CLINICAL HISTORY: Growth (single umbilical artery). COMPARISON: 10/16/2024, 09/11/2024 (MFM), 08/21/2024. TECHNIQUE: Real time munoz scale imaging of the fetus was performed transabdominal. FINDINGS: LMP: 04/02/2024. NICOLETTE by LMP: 01/07/2025. GA: 34 weeks 1 day. GESTATION: Single. CERVIX: Not visualized. POSITIONING: Vertex. AMNIOTIC FLUID: 3.2 cm SDP. PLACENTA: Technique: TA. Placenta Position: Anterior. DOPPLERS: Heart Rate: 141 bpm. BIOMETRY: BPD: 8.0 cm, 32 weeks 3 days. 8.6% HC: 30.1 cm, 33 weeks, 3 days. 6.1% AC: 29.4 cm, 33 weeks 2 days. 30.4% FL: 6.4 cm, 32 weeks 6 days. 11.8% FL/AC Ratio: 21.5% CONLEY/AC Ratio: 1.0. EFW: 2122 grams, 4 lb 11 oz. age by this US: 33 weeks 0 days NICOLETTE by this US: 01/15/2025 Percentile by NICOLETTE: 17.5% IMPRESSION: 1. Sonographic gestational age 33 weeks 0 days and sonographic due date 01/15/2025. Sonographic age is 8 days behind the clinical age. 2. Estimated weight 18th percentile. Abdominal circumference 30th percentile. Skip Jenkins M.D. Diagnostic Radiologist [email or web address] Transcribed: 9:38 am DW/Dictated by: Skip Jenkins MD @ 11/28/2024 7:13:00 AM (Electronically Signed)
== END 2024-11-27 13:55 | disposition home or self-care (01) ==
LOC: US 13:54
PROVIDERS: PCP Family Medicine; Visit Provider Advanced Practice Midwife
DX: O26.893 Other specified pregnancy related conditions, third trimester (principal); O09.893 Supervision of other high risk pregnancies, third trimester; R03.0 Elevated blood-pressure reading, without diagnosis of hypertension; Z01.31 Encounter for examination of blood pressure with abnormal findings; Z3A.34 34 weeks gestation of pregnancy
CPT/HCPCS: 76816; 82565; 82570; 84156; 84450; 84460; 84520

== ENCOUNTER 2024-12-01 08:58 | Outpatient (CLI) | payer BC, SELFPAY | END 2024-12-01 08:59 | disposition home or self-care (01) | LOC: NFLDREF 12-03 07:04 | PROVIDERS: PCP Family Medicine; Referring Provider Family Medicine; Visit Provider Advanced Practice Midwife | DX: O13.3 Gestational [pregnancy-induced] hypertension without significant proteinuria, third trimester (principal); Z3A.34 34 weeks gestation of pregnancy | CPT/HCPCS: 82570; 84156 ==

== ENCOUNTER 2024-12-04 10:10 | Outpatient (CLI) | payer BC, SELFPAY ==
--- NOTE | 2024-12-04 10:15 | CRLHL7_ITS ---
For Patients: As a result of the Cures Act, medical imaging exams and procedure reports are released immediately into your electronic medical record. You may view this report before your referring provider. If you have questions, please contact your health care provider. OB ULTRASOUND LMP: 04/02/2024. NICOLETTE by LMP or US: 01/07/2025. GA: 35 w, 1 d. Single. Comparison: 11/27/2024, 10/16/2024, 09/11/2024. INDICATION: GHTN and single UA. TECHNIQUE: Real time grayscale imaging of the fetus was performed. Transabdominal. CERVIX: Not visualized. POSITIONING: Vertex. AMNIOTIC FLUID: 5.2 cm. SDP (N: greater than 2 x 1 cm) BIOPHYSICAL PROFILE: 2: Gross body movements 2: tone 2: Respiratory activity 2: Amniotic fluid SDP (N: greater than 2 x 1 cm) 8/8: Total score PLACENTA: Technique: Transabdominal. PLACENTA POSITION: Anterior. DOPPLER: heart rate: 142 bpm. IMPRESSION: Normal biophysical profile score 8/8. Skip Jenkins M.D. Diagnostic Radiologist [email or web address] CAROL/denise walker/Dictated by: Skip Jenkins MD @ 12/05/2024 8:05:00 AM (Electronically Signed)
== END 2024-12-04 10:11 | disposition home or self-care (01) ==
LOC: US 10:11
PROVIDERS: PCP Family Medicine; Visit Provider Advanced Practice Midwife
DX: O13.3 Gestational [pregnancy-induced] hypertension without significant proteinuria, third trimester (principal); Z3A.35 35 weeks gestation of pregnancy
CPT/HCPCS: 76819; 82565; 82570; 84156; 84450; 84460; 84520

== ENCOUNTER 2024-12-04 11:51 | Outpatient (CLI) | payer BC, SELFPAY ==
[2024-12-05 11:24] LABS: Strep B DNA Probe Negative (Negative)
[2024-12-05 14:29] LABS: Strep B Susceptibility Needed? No
== END 2024-12-04 11:52 | disposition home or self-care (01) ==
LOC: NFLDREF 11:51
PROVIDERS: PCP Family Medicine; Visit Provider Midwife
DX: Z34.03 Encounter for supervision of normal first pregnancy, third trimester (principal)
CPT/HCPCS: 82565; 82570; 84156; 84450; 84460; 84520; 87081; 87653

== ENCOUNTER 2024-12-08 14:26 | Outpatient (CLI) | payer BC, SELFPAY | END 2024-12-08 14:27 | disposition home or self-care (01) | PROVIDERS: PCP Family Medicine; Visit Provider Midwife | DX: O14.93 Unspecified pre-eclampsia, third trimester (principal); Z3A.35 35 weeks gestation of pregnancy | CPT/HCPCS: 82565; 82570; 84156; 84450; 84460; 84520; 84550 ==

== ENCOUNTER 2024-12-11 13:54 | Outpatient (CLI) | payer BC, SELFPAY ==
--- NOTE | 2024-12-11 14:00 | CRLHL7_ITS ---
For Patients: As a result of the Cures Act, medical imaging exams and procedure reports are released immediately into your electronic medical record. You may view this report before your referring provider. If you have questions, please contact your health care provider. LMP: 04/02/2024. NICOLETTE by LMP: 01/07/2025. GA: 36w, 1d. Single. INDICATION: Gestational hypertension. CERVIX: Not visualized. POSITIONING: Vertex. AMNIOTIC FLUID: 4.0 cm SDP. BIOPHYSICAL PROFILE: Total score: 8. Gross body movements: 2. tone: 2. Respiratory activity: 2. Amniotic fluid: 2. (SDP N: Increase 2 x 1 cm) PLACENTA: Technique: Transabdominal. PLACENTA POSITION: Anterior. DOPPLER: heart rate: 167 bpm. IMPRESSION: Normal biophysical profile 03/27. Skip Jenkins M.D. Diagnostic Radiologist [email or web address] CAROL/evy / bM/Dictated by: Skip Jenkins MD @ 12/11/2024 2:48:00 PM (Electronically Signed)
== END 2024-12-11 13:55 | disposition home or self-care (01) ==
LOC: US 13:54
PROVIDERS: PCP Family Medicine; Visit Provider Advanced Practice Midwife
DX: O13.3 Gestational [pregnancy-induced] hypertension without significant proteinuria, third trimester (principal); Z3A.36 36 weeks gestation of pregnancy
CPT/HCPCS: 76819; 82565; 84450; 84460; 84520

== ENCOUNTER 2024-12-16 16:07 | Inpatient (IN) | payer BC, SELFPAY ==
[2024-12-16] VITALS (75 sets, daily range): BP systolic 111–163; BP diastolic 68–96; PULSE 55–78; RESP 16–20; TEMP 36.6–36.7; O2SAT 94–99; BMI 25.5
--- NOTE | 2024-12-16 16:10 | W.PM.LDBA ---
Subjective History of Present Illness Date Seen: 12/16/24 Narrative: Patient is being admitted to Labor and Delivery for IOL for preeclampsia. She is a 34 year old at 36 6/7 weeks gestation. Her full history and physical was dictated by Solomon NAVARRO on 12/11/24. Please see this for details. BPs were increasing so she was admitted last evening for observation with no development of severe features so she was discharged for a few hours home until cervical ripening could begin this lesly. Her Jeff is here supporting her. she has had good movement. No LOF or vaginal bleeding. No CONLEY or vision changes. Specific Issues/Plans G1P Partner: Jeff H&P: Chip. Skye on 12/11/24. IOL scheduled for 12/17 @ 1600 #Preeclampsia dx 12/04/2024: PCR 0.8, AST elevated at 42. ALT, Platelets normal. Gestational HTN dx at 34.1 weeks Reviewed at time of diagnosis with Dr. Ramon who agrees with GHTN Without severe features? Weekly pre-e labs with urine p/c ratio starting at 32 weeks.? 11/27: Labs WNL, 24 hour urine p/c ratio 0.21 12/04: Labs stable with mildly elevated AST, 42. p/c ratio 0.61 12/08: Labs stable, AST 42; p/c ratio 0.8 12/11: Labs stable, AST 38 Twice weekly testing starting at time of diagnosis- testing sheet filled out Growth US every 3 weeks beginning at time of diagnosis had growth at 34 weeks ?EFW 17.4% Delivery recommended at 37 0/7 weeks?-IOL request sent, consent signed. # possible chronic hypertension (no prior hx), At first OB: 150/64, 146/70. ASA recommended. Baseline pre E labs: pr/cr ratio:0.42, otherwise normal 24 urine for protein: 102mg BP elevated again at 34wks. Repeat labs completed # Single Umbilical Artery Low risk NIPT/carrier screen 20-week level II detailed US with MFM with ECHO: perinatology placed /-NOT needed. Weekly testing starting at 36 weeks: BPP/NST form filled out MFM recommended anatomy and growth at 28: 29.7% 34 weeks growth: 17.5% 38 week growth: Ordered Recommend delivery: elective delivery considered at >39 0/7weeks #Failed 1 hr GTT 3hr GTT ordered, passed 3 out of 4 values, failed result was only 1 pt above threshold Imaginst trimester: 06/05/2024:Single living intrauterine with sonographic gestational age 9 weeks 0 days and sonographic due date of 01/08/2025. Subchorionic hemorrhage measures 9 x 7 x 2 millimeters. Anatomy Scan: 08/21/24-Concordance of clinical and sonographic dating. Single umbilical artery. Remainder of the anatomic survey is normal. Lev 2: 09/11/2024-1. Park intrauterine at 23w 1d gestational age. 2. A single umbilical artery is noted on today's US. Otherwise, none of the anomalies commonly detected by ultrasound were evident in the detailed anatomic survey described above. 3. Growth parameters and estimated weight were consistent with appropriate for gestational age pattern of growth. 4. The amniotic fluid volume appeared normal. Vaccinations: COVID: Declined Flu: Declined Tdap: 10/30/2024 RSV: not in season 32 week mental health: 11/13/24 Last pap: 09/22/22: NIL/-HPV OB - Problem Based A/P Additional Plan (1) Supervision of high risk in third trimester: Status: Acute (2) Preeclampsia: Status: Acute (3) Single umbilical artery affecting management of mother, antepartum, single gestation: Status: Acute Plan ASSESSMENT:?? 34 at 37 0/7 weeks gestation?? complicated by:??SUA, possible chronic HTN/GHTN/preeclampsia Labor type: Induced not yet in labor?? Category 1 FHR pattern.??? Labor complicated by: Preeclampsia?? GBS negative ?? PLAN:?? 1. Routine intrapartum cares as ordered. Initiate cervical ripening with vaginal cytotec. 2. Monitoring per policy, continuous 3. Planning likely medicated . Candidate for analgesia of choice.??? 4. Patient encouraged to reposition and ambulate to promote physiologic labor and .?? 5. Pre-e labs this morning were normal, but PCR was not rechecked, nor INR, APTT, fibrinogen.?To recheck those on admit. 6. Anticipate ? OB Exam Physical Exam Narrative: Vitals Reviewed Constitutional:? Alert and oriented x3 HEENT:? Normocephalic, atraumatic Neck:? Supple Lungs:? Clear to auscultation bilaterally Heart:? Regular rate and rhythm, no murmur, rub or gallop Abdomen:? Soft, nontender, and gravid. Vertex by Raman's, confirmed with cervical exam. Extremities:? No edema or erythema. Bilateral lower extremity reflexes +2/4, negative clonus Cervix: 0 cm/25%/-2 station NST: 140 bpm/moderate variability/accelerations present/decelerations absent/contractions not present
[2024-12-16 17:15] LABS: Platelet Count* 140 K/uL (140-440)
[2024-12-16] MEDS: miSOPROStoL 25 MCG/0.25 TABLET VAGINAL ×2 (17:19→20:16)
[2024-12-16 17:28] LABS: INR 0.83 (0.91-1.10); Prothrombin Time 12.1 Seconds
[2024-12-16 17:30] LABS: Partial Thromboplastin Time* 26 Seconds (23-33)
[2024-12-16 17:31] LABS: Fibrinogen* 492 mg/dL (200-450)
--- NOTE | 2024-12-16 18:11 | P.OBPN_ITS ---
Subjective Date Seen: 12/16/24 Narrative: Jocelyne is a 34 yo G1 at 36w6d being induced for pre-eclampsia. She has received one dose of vaginal cytotec at 1722. She did have one elevated BP of 160/90 with repeat of 154/95. Her Jeff is here supporting her. she has had good movement. No LOF or vaginal bleeding. No CONLEY or vision changes. She is not feeling contractions as of yet. INR, APTT, and fibrinogen were redrawn and are stable. Objective Exam: Objective: Constitutional: Alert and oriented x3, [mild/moderate/severe] distress, coping well Vital signs stable, see nurse documentation Cervical exam deferred NST: 125 bpm/moderate variability (approx 6 beats per min currently)/accelerations currently absent/decelerations absent/contractions q 3- 5min palpating mild Vital Signs: Last Vital Signs Temp 97.8 F 12/16/24 16:42 Pulse 78 12/16/24 18:08 BP 154/95 H 12/16/24 18:08 Plan Plan: ASSESSMENT:?? 34 at 37 0/7 weeks gestation?? complicated by:??SUA, possible chronic HTN/GHTN/preeclampsia Labor type: Induced not yet in labor?? Category 1 FHR pattern.??? Labor complicated by: Preeclampsia?? GBS negative ?? PLAN:?? 1. Routine intrapartum cares as ordered. Continue with ripening as indicated. 2. Monitoring per policy, continuous 3. Planning likely medicated . Candidate for analgesia of choice.??? 4. Patient encouraged to reposition and ambulate to promote physiologic labor and after initial hour after cytotec as long as BP is stable.?? 5. Dr Bailey made aware of mild abnormalities of INR and fibrinogen. No change of course indicated. 6. Anticipate ?
[2024-12-16] MEDS: LABETALOL HCL 5 MG/ML inj IVP (18:51)
[2024-12-16] MEDS: LACTATED RINGERS 1000 ML 1,000 ML 75 ML IV (19:09)
[2024-12-16] MEDS: MAGNESIUM IV 4 GM/100 ML PIGGYBACK IVPB (19:09)
[2024-12-16] MEDS: MAGNESIUM Infusion 40 GM/1,000 ML IV.SOLN IVPB (19:41)
[2024-12-16 19:50] LABS: Hematocrit 38.6 % (33.0-51.0); Mean Corpuscular HGB Conc 34 gm/dL (32-36); Mean Corpuscular Hemoglobin 30 pg (26-34); Mean Corpuscular Volume 90 fL (80-100); Platelet Count* 159 K/uL (140-440); Red Blood Count 4.27 m/uL (4.00-5.20); White Blood Count* 6.65 K/uL (4.50-11.00)
[2024-12-16 19:51] LABS: Slide Review Reflex No
[2024-12-16 20:07] LABS: Alanine Aminotransferase* 23 U/L (4-35); Aspartate Amino Transferase* 34 U/L (12-35); Blood Urea Nitrogen* 18 mg/dL (5-24); Creatinine* 0.8 mg/dL (0.5-1.5); Est. Creatinine Clearance* 81.97; Estimated Glomerular Filt Rate 99 ml/min
[2024-12-16 20:50] LABS: Total Protein Urine 15 mg/dL
[2024-12-16 20:51] LABS: Creatinine Urine 28.3 mg/dL; Protein Creatinine Ratio Urine 0.53 (0-0.19)
--- NOTE | 2024-12-16 21:15 | PM.OBCN1 ---
OB - CN: HPI Date of Consult Time Seen by Provider: 18:50 Date Seen: 12/16/24 Consult date: 12/16/24 Requesting Physician: Dalia Navarro CNM Primary Care Provider: Skip Jacques MD Consult Narrative Narrative: The patient is a 34 year old G 1 P 0 at36 6/7 weeks gestation that was admitted to the Center on 12/16/24 for induction of labor secondary to pre-eclampsia. I was consulted for management of BP and mag. Patient had 2 BP in severe range since admission, 160/90 at 1754, and 163/91 at 1840 that persisted on repeat. OB Problem List: #Preeclampsia dx 12/04/2024: PCR 0.8, AST elevated at 42. ALT, Platelets normal. Gestational HTN dx at 34.1 weeks Reviewed at time of diagnosis with Dr. Ramon who agrees with GHTN Without severe features? Weekly pre-e labs with urine p/c ratio starting at 32 weeks.? 11/27: Labs WNL, 24 hour urine p/c ratio 0.21 12/04: Labs stable with mildly elevated AST, 42. p/c ratio 0.61 12/08: Labs stable, AST 42; p/c ratio 0.8 12/11: Labs stable, AST 38 Twice weekly testing starting at time of diagnosis- testing sheet filled out Growth US every 3 weeks beginning at time of diagnosis had growth at 34 weeks ?EFW 17.4% Delivery recommended at 37 0/7 weeks?-IOL request sent, consent signed. # possible chronic hypertension (no prior hx), At first OB: 150/64, 146/70. ASA recommended. Baseline pre E labs: pr/cr ratio:0.42, otherwise normal 24 urine for protein: 102mg BP elevated again at 34wks. Repeat labs completed # Single Umbilical Artery Low risk NIPT/carrier screen 20-week level II detailed US with MFM with ECHO: perinatology placed /-NOT needed. Weekly testing starting at 36 weeks: BPP/NST form filled out [facility] recommended anatomy and growth at 28: 29.7% 34 weeks growth: 17.5% 38 week growth: Ordered Recommend delivery: elective delivery considered at >39 0/7weeks #Failed 1 hr GTT 3hr GTT ordered, passed 3 out of 4 values, failed result was only 1 pt above threshold History of Present Dating criteria: based on LMP care: good care Ultrasounds: normal 1st trimester US and abnormal US findings Abnormal ultrasound findings: Single umbilical artery complications: preeclampsia (by BP criteria) Type: severe History History 1 Elective abortions Para 0 Spontaneous abortions Hx # Term Pregnancies Ectopic pregnancies Hx # Pregnancies Multiple births Number of Living Children 0 Labs Blood type: B (+) positive Rubella: immune RPR/VDLR: nonreactive GBS status: negative HBsAG: negative OB Labs: Lab Assessment Start: 12/16/24 17:13 Freq: ONCE Status: Complete Protocol: PC.OBGBS Activity Type Activity Date Activity User E-sign Co-sign Detail Recorded Client Recorded Date Recorded By Document 12/16/24 17:13 [facility] [id number] 12/16/24 17:43 [facility] 12/16/24 17:13 Lab Assessment GBS Status negative GBS Additional Criteria None Is Patient Allergic to Penicillin? No Susceptibility Studies Available? None No Treatment Needed OK Are Labs Available Yes Maternal Blood Type B Maternal RH Factor Positive Evaluate Maternal Rubella Immune Status Immune Hepatitis B Surface Antigen Negative Maternal HIV Status Negative Maternal Syphillis (RPR) Status Negative PFSH PFSH Medical History Migraine with aura ?G43.109 - Migraine with aura, not intractable, without status migrainosus (ICD-10) Family History Mother Breast cancer, Onset Age: 50 Diabetes Uncle Diabetes Aunt Diabetes Grandfather COPD (chronic obstructive pulmonary disease) Other Lung cancer Social History Narrative: Occupation: Accounts receivable. Marital status: . Baptist/cultural needs: no. Chemical or radiation exposure: no. Pre- tobacco use: no. Pre- alcohol use: no. Current tobacco use: no. Current alcohol use: no. Recreational drug use: no. Dietary restrictions: no. Blood transfusion acceptable in an emergency: yes. PSYCHOSOCIAL HISTORY: History of depression or currently depressed: no. Current or past physical, emotional, or sexual mistreatment: no. Problems that will make it hard to make it to appointments: no. What is your current living situation?: I presently have a place to live Problems where you live: pests, such as bugs, ants, or mice In the past 12 months, utilities in danger of being shut off: no In past 12 months, lack of transportation kept you from medical appts, meetings, work, or getting things needed for daily living: no In the past 12 mos, have been you worried that your food would run out before you had money to buy more?: never true In the past 12 mos, the food you bought just didn't last and you didn't have money to buy more?: never true Smoking Status: Never smoker How often does anyone, including family, friends and others, physically hurt you: never How often does anyone, including family, friends and others, insult or talk down to you: never How often does anyone, including family, friends and others, threaten you with harm: never How often does anyone, including family, friends and others, scream or curse at you: never Health Related Social Needs: Inadequate housing (Z59.1) Meds Home Medications and Allergies Home Medications ?Medication ?Instructions ?Recorded ?Confirmed ?Type docosahexaenoic acid 200 mg mg PO 06/05/24 12/15/24 History capsule ( DHA) aspirin 81 mg tablet,delayed 81 mg PO QDAY 07/31/24 12/16/24 History release (Adult Low Dose Aspirin) cholecalciferol (vitamin D3) 125 125 mcg PO QDAY 08/21/24 12/16/24 History mcg (5,000 unit) capsule Allergies Allergy/AdvReac Type Severity Reaction Status Date / Time No Known Drug Allergies Allergy Verified 12/16/24 16:15 OB - H&P: Exam Physical Exam: Vital signs: Temp Pulse Resp BP Pulse Ox 97.8 F 60 20 121/70 97 12/16/24 16:42 12/16/24 20:54 12/16/24 19:35 12/16/24 20:54 12/16/24 21:11 Narrative: Vitals noted per EMR. OB - Results Labs Labs: Short CBC 12/16/24 12/16/24 Range/Units 17:07 19:41 WBC 6.65 (4.50-11.00) K/uL Hgb 13.0 (12.0-16.0) gm/dL Hct 38.6 (33.0-51.0) % Plt Count 140 159 (140-440) K/uL BMP 12/16/24 19:41 BUN 18 Creatinine 0.8 Liver Function 12/16/24 Range/Units 19:41 AST 34 (12-35) U/L ALT 23 (4-35) U/L OB - CN: A/P Assessment and Plan (1) Supervision of high risk in third trimester: Status: Acute (2) Preeclampsia: Status: Acute (3) Single umbilical artery affecting management of mother, antepartum, single gestation: Status: Acute Plan Labetalol per protocol for persistent severe range BP. Magnesium sulfate prophyalxis, 4g IV load, then 2g/hour, continue until 24 hours . Finish Mill Operator comfortable at this time with induction and labor management. OB MD to be available as needed for consultation.
--- NOTE | 2024-12-16 21:57 | PM.OBPNL ---
Subjective Date Seen: 12/16/24 Narrative: Jocelyne is a 34 yo G1 at 36w6d being induced for pre-eclampsia. She has received two doses of vaginal cytotec, last at 2030. She did have repetitive BPs in the severe range. Dr Bailey has started magnesium IV for seizure prophylaxis and patient was given a dose of labetolol IV. She has been normotensive since. PCR is down to 0.53, but her other pre-labs are normal. Mild abnormalities as previously noted for INR and fibrinogen. Her Jeff is here supporting her. No CONLEY or vision changes. She is not feeling contractions as of yet. Objective Exam: Exam deferred. See nursing notes Vital Signs: Last Vital Signs Temp 98.1 F 12/16/24 21:30 Pulse 62 12/16/24 21:29 Resp 16 12/16/24 21:29 BP 127/83 12/16/24 21:29 Pulse Ox 97 12/16/24 21:56 Plan Plan: ASSESSMENT:?? 34 at 37 0/7 weeks gestation?? complicated by:??SUA, possible chronic HTN/GHTN/preeclampsia Labor type: Induced not yet in labor?? Category 1 FHR pattern.??? Labor complicated by: Preeclampsia?with severe features? GBS negative ?? PLAN:?? 1. Routine intrapartum cares as ordered. Continue with ripening as indicated. 2. Monitoring per policy, continuous 3. Planning likely medicated . Candidate for analgesia of choice.??? 4. Patient encouraged to reposition and ambulate to promote physiologic labor and after initial hour after cytotec as long as BP is stable.?? 5. Dr Bailey managing blood pressure meds and CNMs to continue labor management unless otherwise indicated. 6. Anticipate ?
[2024-12-17] VITALS (100 sets, daily range): BP systolic 109–146; BP diastolic 49–91; PULSE 55–80; RESP 16; TEMP 36.4–36.6; O2SAT 89–100
[2024-12-17 01:28] LABS: Hematocrit 39.6 % (33.0-51.0); Hemoglobin* 13.7 gm/dL (12.0-16.0); Mean Corpuscular HGB Conc 35 gm/dL (32-36); Mean Corpuscular Hemoglobin 31 pg (26-34); Mean Corpuscular Volume 90 fL (80-100); Platelet Count* 155 K/uL (140-440); Red Blood Count 4.42 m/uL (4.00-5.20); White Blood Count* 7.94 K/uL (4.50-11.00)
[2024-12-17 01:29] LABS: Slide Review Reflex No
[2024-12-17 01:43] LABS: Alanine Aminotransferase* 23 U/L (4-35); Aspartate Amino Transferase* 33 U/L (12-35); Blood Urea Nitrogen* 17 mg/dL (5-24); Creatinine* 0.8 mg/dL (0.5-1.5); Est. Creatinine Clearance* 81.97; Estimated Glomerular Filt Rate 99 ml/min
[2024-12-17 01:56] LABS: Amnisure Rom* Negative
[2024-12-17] MEDS: ROPIVACAINE 0.2% 100 ml 100 ML 12 MG EPIDURAL (02:21)
[2024-12-17] MEDS: LIDOCAINE 2% (PF) 5 ML VIAL EPIDURAL (02:21)
[2024-12-17] MEDS: miSOPROStoL 25 MCG/0.25 TABLET VAGINAL (02:30)
[2024-12-17] MEDS: LACTATED RINGERS 1000 ML 1,000 ML 75 ML IV ×3 (02:30→12:06)
--- NOTE | 2024-12-17 02:32 | PM.ANBPRC ---
[facility] Medical History Migraine with aura ?G43.109 - Migraine with aura, not intractable, without status migrainosus (ICD-10) Family History Mother Breast cancer, Onset Age: 50 Diabetes Uncle Diabetes Aunt Diabetes Grandfather COPD (chronic obstructive pulmonary disease) Other Lung cancer Social History Narrative: Occupation: Accounts receivable. Marital status: . Restorationist/cultural needs: no. Chemical or radiation exposure: no. Pre- tobacco use: no. Pre- alcohol use: no. Current tobacco use: no. Current alcohol use: no. Recreational drug use: no. Dietary restrictions: no. Blood transfusion acceptable in an emergency: yes. PSYCHOSOCIAL HISTORY: History of depression or currently depressed: no. Current or past physical, emotional, or sexual mistreatment: no. Problems that will make it hard to make it to appointments: no. What is your current living situation?: I presently have a place to live Problems where you live: pests, such as bugs, ants, or mice In the past 12 months, utilities in danger of being shut off: no In past 12 months, lack of transportation kept you from medical appts, meetings, work, or getting things needed for daily living: no In the past 12 mos, have been you worried that your food would run out before you had money to buy more?: never true In the past 12 mos, the food you bought just didn't last and you didn't have money to buy more?: never true Smoking Status: Never smoker How often does anyone, including family, friends and others, physically hurt you: never How often does anyone, including family, friends and others, insult or talk down to you: never How often does anyone, including family, friends and others, threaten you with harm: never How often does anyone, including family, friends and others, scream or curse at you: never Health Related Social Needs: Inadequate housing (Z59.1) Meds Home Medications and Allergies Home Medications ?Medication ?Instructions ?Recorded ?Confirmed ?Type docosahexaenoic acid 200 mg mg PO 06/05/24 12/15/24 History capsule ( DHA) aspirin 81 mg tablet,delayed 81 mg PO QDAY 07/31/24 12/16/24 History release (Adult Low Dose Aspirin) cholecalciferol (vitamin D3) 125 125 mcg PO QDAY 08/21/24 12/16/24 History mcg (5,000 unit) capsule Allergies Allergy/AdvReac Type Severity Reaction Status Date / Time No Known Drug Allergies Allergy Verified 12/16/24 16:15 Results Labs Labs: Laboratory Results - last 24 hr 12/16/24 12/16/24 12/16/24 17:07 19:41 20:15 WBC 6.65 RBC 4.27 Hgb 13.0 Hct 38.6 MCV 90 MCH 30 MCHC 34 Plt Count 140 159 INR 0.83 L APTT 26 Fibrinogen 492 H BUN 18 Creatinine 0.8 Estimated Creat Clear 81.97 Estimated GFR 99 Magnesium AST 34 ALT 23 Urine Creatinine 28.3 Protein/Creatinin Ratio 0.53 H Urine Total Protein 15 Membrane Rupture Blood Type B Positive Antibody Screen NEGATIVE 12/17/24 12/17/24 01:20 01:36 WBC 7.94 RBC 4.42 Hgb 13.7 Hct 39.6 MCV 90 MCH 31 MCHC 35 Plt Count 155 INR APTT Fibrinogen BUN 17 Creatinine 0.8 Estimated Creat Clear 81.97 Estimated GFR 99 Magnesium 6.0 H* AST 33 ALT 23 Urine Creatinine Protein/Creatinin Ratio Urine Total Protein Membrane Rupture Negative Blood Type Antibody Screen Vital Signs Vital Signs: Last Vital Signs Temp 98.1 F 12/16/24 21:30 Pulse 68 12/17/24 02:28 Resp 16 12/16/24 21:29 BP 124/83 12/17/24 02:28 Pulse Ox 96 12/17/24 02:30 Weight: 65.499 kg Height: 160.02 cm Anesthesia Procedures Epidural Insertion Patient Location: OB Start Time: : Stop Time: : Start Date: 12/17/24 Stop Date: 12/17/24 Reason for Block: procedure for pain Patient Position: sitting Performed By: Jovana Otero Preanesthetic Checklist: IV checked, risks and benefits discussed, monitors and equipment checked, pre-op evaluation, timeout performed and anesthesia consent Prep: chlorhexidine gluconate Monitoring: blood pressure monitoring, continuous pulse oximetry and heart rate Approach: midline Vertebral Space: lumbar (1-5) Epidural Technique: VAN saline Needle Type: Tuohy needle Injection Technique: continuous catheter (continuous catheter) Needle gauge: 17 Needle Length (cm): 10 cm Needle Insertion Depth (cm): 6 Catheter Gauge: 19 Catheter Type: multi-orifice Catheter at skin depth (cm): 15 Test Dose Result: negative and lidocaine 1.5% with epinephrine 1 to 200,000
[2024-12-17] MEDS: PHENYLEPHRINE 100 MCG/ML SYRINGE IVP ×2 (03:08→03:17)
--- NOTE | 2024-12-17 03:59 | PM.OBPNL ---
Subjective Time Seen by Provider: 03:50 Date Seen: 12/17/24 Narrative: I was called in for Collette Slaughter. 34-year-old , admitted for cervical ripening/induction of labor for pre-eclampsia with sevre features based on BP criteria. Currently 37 0/7 weeks gestation. Induction method: misoprostol PV. The patient had requested epidural for pain management which was placed at 0221. Just prior to epidural, BP had been mostly 130s/80s, and FHR tracing was 130 baseline with good variability, accelarations present and no decelerations. Patient received second dose of misoprostol PV at 0230. At 0239, there was a late deceleration of the FHR tracing, BP 123/72. Patient repositioned, lates noted x2 and FHR returned to baseline with decreased variability. BP noted to be 109/57 at 0251, then 112/65. FHR tracing showed deep variable/late deceleration at 0300, and then repetitive deep variables/lates between 0304 to 0310 and 0317. Phenylephrine given at 0308. BP 109/70. Second dose of phenylephrine administered, patient repositioned, and Collette Slaughter called to me at 0318. While I was en route, I was called and told that FHR tracing had recovered. When I got to the Center, heart rate tracing looked better, had returned to baseline 140 bpm, with decreased variability but no repetitive or prolonged decelerations. The O.R. team was not in house. Epidural was off. Serial BPs between 0323 and 0402 were 115/72, 123/78, 128/83, 131/85 and 140/80. Objective Vital Signs: Last Vital Signs Temp 98.1 F 12/16/24 21:30 Pulse 66 12/17/24 03:50 Resp 16 12/16/24 21:29 BP 131/85 12/17/24 03:50 Pulse Ox 91 12/17/24 03:58 Pelvic Exam Dilation (cm): 3 Effacement (%): 90 Station: -2 Comments: questionable SROM exam per CNM Contractions Monitor mode: External Contraction Frequency: 2-5 minutes Contraction pattern: Irregular Contraction intensity: Moderate Assessment Assessment: induction ongoing Status: Category ll Heart Rate Baseline: 130 Lithographers Printer Variability: Moderate (6-25) Monitor Accelerations: Absent Monitor Decelerations: Variable Tracing Comments: category 2 Plan Plan: Recommended that O.R. team be present in house for unstable situation. Epidural back on per ELECTRICAL MAINTENANCE MECHANIC. Continuous monitoring. Consider pitocin infusion once fetus has sufficiently recovered and if contractions not adequate.
--- NOTE | 2024-12-17 04:27 | PM.OBPNL ---
Subjective Date Seen: 12/17/24 Narrative: Jocelyne is a 34 yo G1 at 36w6d being induced for pre-eclampsia and later developed severe features due to blood pressure. She is being comanaged with Dr Bailey who is attending to the IV BP medication and magnesium drip. She has received three doses of vaginal cytotec, last at 0230. She received an epidural just prior to the last dose. Significant decelerations with a decrease in blood pressure was noted and Dr Bailey and I were called in. Please see her note. On my arrival FHTs were back to baseline, with intermittent periods of moderate variability, but late decels were still recurrent. VE revealed significant change to 3/90/-1, with large BBOW, though patient has been grossly ruptured clear fluid since 0130 per nursing. Amnisure was negative, but continued clear fluid indicate otherwise. An IV fluid bolus was given. O2 administered. An attempt for position change to left side prompted another decel, so she was returned to her right side. Peanut ball added. Baseline returned to 125 with moderate variability. Contractions spaced. Acceleration noted at 0420. Late deceleration returned at 0422. Epidural restarted at 0423. Lates have recurred. Blood pressures have been stable. Reviewed with patient the possibility of needing a if baby cannot tolerate labor. Objective Vital Signs: Last Vital Signs Temp 98.1 F 12/16/24 21:30 Pulse 69 12/17/24 04:20 Resp 16 12/16/24 21:29 BP 138/82 12/17/24 04:20 Pulse Ox 100 12/17/24 04:27
[2024-12-17] MEDS: AZITHROMYCIN 500 MG in 0.9 % SODIUM CHLORIDE 250 ml 250 ML 255 MG IVPB (05:25)
--- NOTE | 2024-12-17 05:25 | P.OBPRC_ITS ---
Procedure Date of procedure: 12/17/24 Pre-op diagnosis: 1. Non-reassuring FHR tracing remote from delivery, 2. IUP @37 weeks, 3. Pre-eclampsia with severe features Post-op diagnosis: same Procedure Done: Global Will [facility] bill your pro fee for this procedure?: Yes Blood Loss Measurement Type: QBL IV fluids (mL): 300 Urine Output (mL): 450 Urine Output Comment: clear Surgeon: Nanci Bailey MD Anesthesia Type: Epidural and TAP Block Findings: Live-born female , cephalic presentation, loose nuchal cord x1, true knot in the cord. 7 and 8 at 1 and 5 minutes respectively. weight 5 lb 11 oz or 2570 g. Normal-appearing uterus, ovaries, and fallopian tubes. Procedure Name: Primary low transverse section. Procedure Description: After obtaining informed consent, the patient was taken to the operating room where spinal anesthesia was obtained and found to be adequate. She was prepared and draped in the normal sterile fashion in the dorsal supine position with a leftward tilt. A Pfannenstiel skin incision was made with a scalpel. This incision was carried down to the underlying layer of fascia with the Bovie. The fascia was incised in the midline and the incision extended laterally. The superior and inferior aspects of the fascial incision were grasped with Lashon clamps, elevated and the underlying rectus muscles dissected off sharply. The rectus muscles were then in the midline. The Chris O retractor was then placed into the incision. The lower uterine segment was then incised in a transverse fashion with the scalpel. Upon entry into the uterus, little amniotic fluid was noted, shoulder was presenting at the incision. The uterine incision was extended laterally with blunt finger fractionation. The 's head was carefully elevated and delivered atraumatically, followed by the remainder of the 's body. Nuchal cord was reduced over the head prior to delivery of body. The nose and mouth were suctioned with the bulb suction. The cord was doubly clamped and cut, and the infant was handed off the field for evaluation. A segment of umbilical cord was also doubly clamped so that cord gases could be obtained. The placenta was delivered spontaneously with umbilical cord traction and fundal massage. The uterus was cleared of all clots and debris. The uterine incision was reapproximated in a running locking fashion with a 0 chromic suture. A 2nd layer of the same suture was used to imbricate in horizontal fashion. One additional figure of X suture was placed along the right lateral aspect of the hysterotomy incision for hemostasis. The gutters were inspected and clots removed. All instruments and retractors were removed. The anterior peritoneum was reapproximated in a running fashion with a 3-0 Vicryl suture. The subfascial tissues were carefully inspected and hemostasis assured. The fascia was reapproximated in a running fashion with a looped 0 Maxon suture. The subcutaneous tissues were copiously irrigated. Hemostasis was assured. The skin was closed in a subcuticular fashion with 4-0 Vicryl. Surgical glue and dressing were applied. The patient tolerated the procedure well. Sponge, lap, needle, and instrument counts were reported as correct x2. The patient was taken to the recovery room, awake, and in stable condition. She did receive two grams of IV Ancef and 500 mg azithromycin preoperatively. Toradol was administered at the conclusion of the procedure. TAP block was done by Anesthesia at the conclusion of the procedure. Complications: None. Pathology: specimen obtained, sent to pathology (Placenta.) Surgery Debrief Performed: Yes Condition: stable Disposition: floor
--- NOTE | 2024-12-17 05:27 | PM.OBPNL ---
Subjective Date Seen: 12/17/24 Narrative: Jocelyne is a 34 yo G1 at 36w6d being induced for pre-eclampsia and later developed severe features due to blood pressure. She is being comanaged with Dr Bailey who is attending to the IV BP medication and magnesium drip. She has received three doses of vaginal cytotec, last at 0230. Post epidural placement, persistent category 2 tones prompted conservative measures with only sporadic improvement since. Teams were called in-house. Since remote from delivery, AROM of forebag attempted to see how if either things would move closer to delivery or if necessity of was evident. AROM with bloody fluid noted. Periods of decreased variability and recurrent decelerations continued. Dr Bailey and patient and her agree to deliver by for baby's safety. Objective Vital Signs: Last Vital Signs Temp 98.1 F 12/16/24 21:30 Pulse 68 12/17/24 05:17 Resp 16 12/16/24 21:29 BP 124/82 12/17/24 05:17 Pulse Ox 99 12/17/24 05:17 Pelvic Exam Dilation (cm): 3 Effacement (%): 90 Station: -2 Contractions Monitor mode: External Contraction pattern: Irregular Contraction intensity: Moderate Assessment Status: Category ll Heart Rate Baseline: 130 Monitor Accelerations: Absent Monitor Decelerations: Variable
[2024-12-17] MEDS: CEFAZOLIN 1 GM inj 2 GM IVP (05:29)
[2024-12-17] MEDS: KETOROLAC 30 MG/ML inj IVP ×3 (06:18→19:04)
--- NOTE | 2024-12-17 06:55 | P.NB_ITS ---
Nerve Block Nerve Block Time Seen by Provider: 06:31 Date Seen: 12/17/24 Type of block requested by surgeon for post-operative analgesia: TAP Side: bilateral Time out performed: Yes Verification of patient name: Yes Verification of date of : Yes Name of person performing procedure: vasiliy Continuous monitoring Was continuous monitoring of O2 sat, B/P, avaya engineer, recorded every 15 minutes?: Yes Procedure Checklist: sterile prep, needles and gloves Ultrasound guided. Images saved: Yes Medications given in 5ml increments after negative aspiration: Marcaine %: 0.25 mL: 30 Needle gauge: 20 and Exparel mL: 10 Needle gauge: 20 Patient tolerated procedure well: Yes Block Charges Block Charge (with Pro Fee): TAP Bilateral Use of Ultrasound Machine for Block: Yes- US Guidance/pain block
--- NOTE | 2024-12-17 06:58 | P.ANES_ITS ---
Anesthesia Charges Start Date/Time Anesthesia Start Date: 12/17/24 Anesthesia Start Time: 05:26 Stop Date/Time Anesthesia Stop Date: 12/17/24 Anesthesia Stop Time: 06:52 Summary Emergency: SPECIAL EDUCATION AIDE Coding CPT Codes CPT Codes: ANES/ANALG CS DELIVER ADD-ON - 43876 ([id number]) P3 - PATIENT W/SEVERE SYS DISEASE, QZ - SPECIAL EDUCATION AIDE SVC W/O CHIEF FUNDRAISING OFFICER BY Additional Codes: Summary - Emergency: SPECIAL EDUCATION AIDE ([id number])
--- NOTE | 2024-12-17 06:58 | W.ANESCHARGE ---
Anesthesia Charges Start Date/Time Anesthesia Start Date: 12/17/24 Anesthesia Start Time: 05:26 Stop Date/Time Anesthesia Stop Date: 12/17/24 Anesthesia Stop Time: 06:52 Summary Emergency: COMMERCIAL HVAC TECHNICIAN Coding CPT Codes CPT Codes: ANES/ANALG CS DELIVER ADD-ON - 51345 ([id number]) P3 - PATIENT W/SEVERE SYS DISEASE, QZ - COMMERCIAL HVAC TECHNICIAN SVC W/O WINDING OPERATOR BY Additional Codes: Summary - Emergency: COMMERCIAL HVAC TECHNICIAN ([id number])
[2024-12-17 07:48] LABS: Hematocrit 36.3 % (33.0-51.0); Hemoglobin* 12.5 gm/dL (12.0-16.0); Mean Corpuscular HGB Conc 34 gm/dL (32-36); Mean Corpuscular Hemoglobin 31 pg (26-34); Mean Corpuscular Volume 90 fL (80-100); Platelet Count* 152 K/uL (140-440); Red Blood Count 4.05 m/uL (4.00-5.20); White Blood Count* 14.52 K/uL (4.50-11.00)
[2024-12-17 07:55] LABS: Slide Review Reflex No
[2024-12-17 08:00] LABS: Alanine Aminotransferase* 24 U/L (4-35); Aspartate Amino Transferase* 35 U/L (12-35); Blood Urea Nitrogen* 15 mg/dL (5-24); Creatinine* 0.8 mg/dL (0.5-1.5); Est. Creatinine Clearance* 81.97; Estimated Glomerular Filt Rate 99 ml/min
[2024-12-17 08:12] LABS: Magnesium* 6.9 mg/dL (1.5-2.6)
--- NOTE | 2024-12-17 08:28 | P.OBPN_ITS ---
OB - PN:Subj Subjective Time Seen by Provider: 07:15 Date Seen: 12/17/24 Narrative: Ms. Fleming is a 34yo seen on POD0 from primary C/S for nonreassuring heart tones. She was ongoing induction of labor in the setting of preeclampsia with severe features. otherwise complicated by single umbilical artery. Jocelyne was seen about 1 hour postoperatively. She is feeling fine so far. Working on breast-feeding with bedside nurse. Pain is well controlled. Has not had anything to eat or drink just yet. Has not been out of bed, voiding via Jacobs. Denies any headache, vision changes or right upper quadrant pain. She is currently on magnesium sulfate for seizure prophylaxis, planned a continue this for 24 hours . Her HELLP labs have been trended q.6 hours, within normal limits. Labs to be drawn after rounding. OB - PN: Obj Exam Physical Exam: Vital signs: Temp Pulse Resp BP Pulse Ox 97.6 F 59 L 16 137/86 98 12/17/24 07:53 12/17/24 08:08 12/17/24 08:08 12/17/24 08:08 12/17/24 08:08 Narrative: Vital signs reviewed and are within normal limits. General: Alert and oriented, no acute distress. Lying in bed, working to breast-feed baby. Psych: Appropriate mood and affect Cardiopulmonary exam deferred as patient is actively working on . Please see supervisor coremaker for cardiopulmonary exam with Mag checks. Patient is breathing comfortably, extremities are warm and well perfused. Abdomen: Soft, nontender nondistended. Fundus at umbilicus. Incisional dressing in place, clean/dry. Extremities: SCDs on. No significant note lower extremity edema. Calves are without erythema, tenderness or swelling. OB - PN: Obj Data Labs Labs: Laboratory Results - last 24 hr 12/16/24 12/16/24 12/16/24 17:07 19:41 20:15 WBC 6.65 RBC 4.27 Hgb 13.0 Hct 38.6 MCV 90 MCH 30 MCHC 34 Plt Count 140 159 INR 0.83 L APTT 26 Fibrinogen 492 H BUN 18 Creatinine 0.8 Estimated Creat Clear 81.97 Estimated GFR 99 Magnesium AST 34 ALT 23 Urine Creatinine 28.3 Protein/Creatinin Ratio 0.53 H Urine Total Protein 15 Membrane Rupture Blood Type B Positive Antibody Screen NEGATIVE 12/17/24 12/17/24 12/17/24 01:20 01:36 07:35 WBC 7.94 14.52 H RBC 4.42 4.05 Hgb 13.7 12.5 Hct 39.6 36.3 MCV 90 90 MCH 31 31 MCHC 35 34 Plt Count 155 152 INR APTT Fibrinogen BUN 17 15 Creatinine 0.8 0.8 Estimated Creat Clear 81.97 81.97 Estimated GFR 99 99 Magnesium 6.0 H* 6.9 H* AST 33 35 ALT 23 24 Urine Creatinine Protein/Creatinin Ratio Urine Total Protein Membrane Rupture Negative Blood Type Antibody Screen OB - PN: A/P Delivery Assessment and Plan (1) Supervision of high risk in third trimester: Status: Acute (2) Preeclampsia: Status: Acute (3) Single umbilical artery affecting management of mother, antepartum, single gestation: Status: Acute Plan Jocelyne is a 34-year-old seen on postop day 0 in the immediate . Following primary delivery performed for nonreassuring heart tones well ongoing induction of labor for preeclampsia with severe features. Her was reported as uncomplicated. I did briefly round on her this morning, as she is a high-risk patient due to preeclampsia with severe features. Her vitals have been within normal limits, has not required any longer short-acting antihypertensive medications overnight. She is on magnesium sulfate for seizure prophylaxis, plan to continue this for 24 hours . Denies headache, vision changes or right upper quadrant pain. Serial labs ongoing, next set due shortly this morning. They have been within normal limits to present. With regard to postop status, plan to work on her immediate recovery. Discussed goals for pain control, p.o. intake, ultimately ambulation and voiding. Encourage support and bonding with baby - Plan to continue diligent blood pressure monitoring and treatment as clinically indicated - Serial HELLP labs Q6h - Last labs 0730: Hgb 12.5, Plt 152, Cr 0.8, AST 35, ALT 24, Mag 6.9 - Magnesium infusion at 2g/hr until 12/18 @ approximately 0630. Mag checks per RN protocol, no signs/symptoms of toxicity at this time - Currently voiding via Jacobs, continue strict I/Os - Continue routine cares including breast feeding support and progression through postoperative milestones - Pain control with NSAIDs, Tylenol and oxycodone as needed Disposition: Inpatient, anticipate discharge to home on 12/19 or 12/20 Plan day: 0 Plan: routine care
[2024-12-17 13:32] LABS: Hematocrit 34.1 % (33.0-51.0); Hemoglobin* 11.7 gm/dL (12.0-16.0); Mean Corpuscular HGB Conc 34 gm/dL (32-36); Mean Corpuscular Hemoglobin 31 pg (26-34); Mean Corpuscular Volume 89 fL (80-100); Platelet Count* 146 K/uL (140-440); Red Blood Count 3.82 m/uL (4.00-5.20)
[2024-12-17 13:36] LABS: Slide Review Reflex No
[2024-12-17 13:46] LABS: Alanine Aminotransferase* 26 U/L (4-35); Aspartate Amino Transferase* 37 U/L (12-35); Blood Urea Nitrogen* 13 mg/dL (5-24); Creatinine* 0.8 mg/dL (0.5-1.5); Est. Creatinine Clearance* 81.97; Estimated Glomerular Filt Rate 99 ml/min
[2024-12-17 13:52] LABS: Magnesium* 6.8 mg/dL (1.5-2.6)
[2024-12-17] MEDS: MAGNESIUM Infusion 40 GM/1,000 ML IV.SOLN IVPB (14:30)
[2024-12-17] MEDS: SODIUM CHLORIDE 0.9 % (FLUSH) 10 ML SYRINGE IVF (19:05)
[2024-12-17 19:41] LABS: Hematocrit 34.3 % (33.0-51.0); Hemoglobin* 11.6 gm/dL (12.0-16.0); Mean Corpuscular HGB Conc 34 gm/dL (32-36); Mean Corpuscular Hemoglobin 31 pg (26-34); Mean Corpuscular Volume 91 fL (80-100); Platelet Count* 145 K/uL (140-440); Red Blood Count 3.78 m/uL (4.00-5.20); White Blood Count* 13.01 K/uL (4.50-11.00)
[2024-12-17 19:56] LABS: Alanine Aminotransferase* 23 U/L (4-35); Aspartate Amino Transferase* 35 U/L (12-35); Blood Urea Nitrogen* 14 mg/dL (5-24); Creatinine* 0.9 mg/dL (0.5-1.5); Est. Creatinine Clearance* 72.86; Estimated Glomerular Filt Rate 86 ml/min
[2024-12-17 19:57] LABS: Magnesium* 7.2 mg/dL (1.5-2.6)
[2024-12-17 20:03] LABS: Slide Review Reflex No
[2024-12-17] MEDS: ACETAMINOPHEN 500 MG TABLET 1000 MG PO (23:00)
[2024-12-18] VITALS (7 sets, daily range): BP systolic 111–130; BP diastolic 69–84; PULSE 55–78; RESP 12–16; TEMP 36.3–36.8; O2SAT 95–98
[2024-12-18] MEDS: KETOROLAC 30 MG/ML inj IVP ×3 (01:07→13:07)
[2024-12-18] MEDS: LACTATED RINGERS 500 ML 500 ML 75 ML IV (01:17)
[2024-12-18 02:03] LABS: Hemoglobin* 10.5 gm/dL (12.0-16.0)
[2024-12-18 02:25] LABS: Magnesium* 7.5 mg/dL (1.5-2.6)
[2024-12-18] MEDS: ACETAMINOPHEN 500 MG TABLET 1000 MG PO ×4 (04:59→23:23)
[2024-12-18] MEDS: DOCUSATE SODIUM 100 MG CAPSULE PO (09:26)
--- NOTE | 2024-12-18 10:29 | PM.OBPNVD1 ---
OB - PN:Subj Subjective Time Seen by Provider: 07: Date Seen: 12/18/24 Patient comments OB post-: pain well controlled, tolerating diet and flatus present status: Narrative: Jocelyne is a 34 y.o. who was admitted to [facility] for [facility] due to preeclampsia with severe features. She had an uncomplicated .?The patient feels well. ?The pain is well controlled with current medications. ?She has no new complaints. ?She is breast feeding and reports things are going well.? Completed 24 hours of Magnesium Sulfate infusion at around 6am this morning. Denies headaches, vision changes or pain in the upper abdomen. the patient has done well.? Vitals have been stable.? She has remained afebrile.? Has a good appetite, is tolerating a general diet. ?She is voiding without difficulty.? She is passing gas and has not had a bowel movement.? She is ambulating and denies any dizziness.? Has Small amount of rubra lochia. OB - PN: Obj Exam Physical Exam: Vital signs: Temp Pulse Resp BP Pulse Ox O2 Del Method 97.4 F L 57 L 16 128/72 96 Room Air 12/18/24 07:25 12/18/24 07:25 12/18/24 07:25 12/18/24 07:25 12/18/24 07:25 12/18/24 07:25 Narrative: VITAL SIGNS: As noted above. GENERAL APPEARANCE: Alert, cooperative female in no acute distress. MOOD & AFFECT: Normal. HEART: Regular rate and rhythm without murmurs. LUNGS: Lungs are clear to auscultation bilaterally. No crackles, wheezes, or rhonchi. ABDOMEN: Positive bowel sounds. Soft, appropriately distended, and slight tenderness upon deep palpation mostly over uterus. Uterus well contracted at umbilicus. Incision covered by dressing and dressing is dry without surrounding erythema. : Normal lochia. EXTREMITIES: Nonedematous. Well perfused. Nontender. NEURO: Intact. OB - PN: Obj Data Labs Labs: Laboratory Results - last 24 hr 12/17/24 12/17/24 12/18/24 13:25 19:36 01:55 WBC 12.40 H 13.01 H RBC 3.82 L 3.78 L Hgb 11.7 L 11.6 L 10.5 L Hct 34.1 34.3 MCV 89 91 MCH 31 31 MCHC 34 34 Plt Count 146 145 BUN 13 14 Creatinine 0.8 0.9 Estimated Creat Clear 81.97 72.86 Estimated GFR 99 86 Magnesium 6.8 H* 7.2 H* 7.5 H* AST 37 H 35 ALT 26 23 OB - PN: A/P Delivery Assessment and Plan (1) Supervision of high risk in third trimester: Status: Acute (2) Preeclampsia: Status: Acute Assessment and Plan: Blood pressures have remained stable without oral antihypertensive medication, will continue close monitoring. We discussed that if blood pressure starts to increase that most of the time we manage with oral antihypertensive medication. Lab work completed yesterday without abnormality showing normal platelets, kidney function and liver function. Will not repeat labs unless there is concern for worsening maternal status. Patient understands that we would recommend at least 24 hours of continued monitoring after discontinuation of magnesium therapy. Earliest discharge would be tomorrow morning. (3) Single umbilical artery affecting management of mother, antepartum, single gestation: Status: Acute Plan day: 1 Plan: routine care
[2024-12-18 12:27] LABS: Rapid Plasma Reagin (RPR) Non Reactive (Non Reactive)
[2024-12-18] MEDS: SIMETHICONE 80 MG TAB.CHEW PO (16:44)
[2024-12-18] MEDS: IBUPROFEN 600 MG TABLET PO (19:30)
[2024-12-19] VITALS (9 sets, daily range): BP systolic 120–159; BP diastolic 72–98; PULSE 56–74; RESP 16–20; TEMP 36.4–36.9; O2SAT 96–98
[2024-12-19] MEDS: NIFEdipine ER 30 MG TAB PO ×2 (06:14→18:03)
[2024-12-19] MEDS: IBUPROFEN 600 MG TABLET PO ×2 (08:24→17:25)
[2024-12-19] MEDS: DOCUSATE SODIUM 100 MG CAPSULE PO (08:24)
--- NOTE | 2024-12-19 09:02 | P.OBPN_ITS ---
OB - PN:Subj Subjective Date Seen: 12/19/24 Interval history: Jocelyne is a 34-year-old G1 now P1-0-0-1 woman who is s/p primary urgent delivery 12/17/24 for nonreassuring status in the setting of induction of labor for preeclampsia with severe features at 37 weeks, 0 days gestation. She was maintained on magnesium sulfate for seizure prophylaxis for 24 hours . Initially, her blood pressures were normal after cessation. However, early this morning, she had a blood pressure of 159/98, repeat 149/82. She was subsequently treated with nifedipine ER 30 mg. Her subsequent blood pressure was 120/72. While on magnesium, she had HELLP labs checked multiple times, and these were all reassuring. She had a hemoglobin alone checked this morning, which was 10.5. Narrative: Jocelyne reports some continuing struggles with . She is sore when getting out of bed, and would like to try to walk further today. She was able to have a bowel movement this morning. She denies any heavy bleeding. No diff iculties with urination. OB - PN: Obj Exam Physical Exam: Vital signs: Temp Pulse Resp BP Pulse Ox O2 Del Method 98.2 F 74 16 120/72 96 Room Air 12/19/24 08:27 12/19/24 08:27 12/19/24 08:27 12/19/24 08:27 12/19/24 08:27 12/19/24 05:42 Narrative: General: Pleasant, no acute distress Heart: Regular rate and rhythm, no murmur or gallop Lungs: Clear to auscultation bilaterally Abdomen: Soft, moderately tender to palpation of the fundus, fundus 1 cm below umbilicus, normoactive bowel sounds, incision clean, dry, and intact Lower extremities: No edema or erythema OB - PN: Obj Data Labs Labs: Laboratory Results - last 24 hr 12/16/24 17:07 RPR Screen Non Reactive OB - PN: A/P Delivery Assessment and Plan (1) Preeclampsia: Status: Acute Assessment and Plan: With new onset of hypertension early this morning. Nifedipine ER 30 mg was started this morning. Follow blood pressures throughout the day; I suspect I will increase to b.i.d. dosing prior to discharge. (2) Status post emergency section: Status: Acute (3) Anemia associated with acute blood loss: Status: Acute Assessment and Plan: Begin ferrous sulfate q.o.d.. Plan day: 2 Plan: routine care Comments: Anticipate discharge tomorrow
[2024-12-19] MEDS: ACETAMINOPHEN 500 MG TABLET 1000 MG PO (14:37)
[2024-12-19] MEDS: FERROUS SULFATE 325 MG TABLET PO (14:38)
[2024-12-20] VITALS (12 sets, daily range): BP systolic 130–150; BP diastolic 79–93; PULSE 68–98; RESP 16; TEMP 36.7–36.9; O2SAT 96–97
[2024-12-20] MEDS: IBUPROFEN 600 MG TABLET PO ×2 (05:33→15:54)
[2024-12-20] MEDS: NIFEdipine ER 30 MG TAB PO ×2 (05:55→09:46)
--- NOTE | 2024-12-20 09:22 | PM.OBDSVD1 ---
DS: Providers Provider Time Seen by Provider: 09:22 Date Seen: 12/20/24 Date of admission: 12/16/24 16:07 Primary care physician: Skip Jacques MD Admitting Clinician: Dalia Navarro CNM Attending Physician on discharge: Dalia Navarro CNM Date of Discharge: 12/20/24 Exam Narrative: Exam Narrative: Physical exam: General: No acute distress Psych: Alert and oriented x4, full affect HEENT: Normocephalic, atraumatic Heart: Regular rate and rhythm, no murmur rub or gallop Lungs: Clear to auscultation bilaterally Abdomen: Normoactive bowel sounds, soft, no tenderness, rebound, or guarding Incision(s): Appropriately tender to palpation. Clean, dry, and intact. No erythema, induration, or abnormal discharge/breakdown Skin: No lesions or rashes Lower extremities: No edema or erythema Pelvic exam: Scant lochia on pad Const: Vital Signs, click to edit/add: Vital Signs - 24 hr 12/19/24 13:36 12/19/24 17:12 12/19/24 17:29 Temperature 98.5 F 97.7 F Pulse Rate [Pulse Oximeter] 68 71 Respiratory Rate 16 16 Blood Pressure [Ri ght Arm] 128/76 142/83 H 137/87 Pulse Oximetry 97 97 Oxygen Delivery Me thod Room Air Room Air 12/19/24 20:05 12/19/24 20:35 12/20/24 00:04 Temperature Pulse Rate [Pulse Oximeter] 68 Respiratory Rate 16 Blood Pressure [Ri ght Arm] 144/82 H 135/82 130/79 Pulse Oximetry 97 Oxygen Delivery Me thod Room Air 12/20/24 05:28 12/20/24 05:55 12/20/24 07:51 Temperature 98.5 F 98.1 F Pulse Rate [Pulse Oximeter] 74 83 Respiratory Rate 16 16 Blood Pressure [Ri ght Arm] 142/93 H 149/88 H 130/80 Pulse Oximetry 97 96 Oxygen Delivery Me thod Room Air Room Air OB - DS: Summary Hospital Course Hospital Course: Jocelyne is a 34-year-old G1 now P1-0-0-1 woman who is s/p primary urgent delivery 12/17/24 for nonreassuring status in the setting of induction of labor for preeclampsia with severe features at 37 weeks, 0 days gestation. She received 24 hrs of magnesium sulfate for seizure prophylaxis and has been monitored for over 24 hours after that. Patient has increased in BP around two hours prior to her next dose of Nifedipine. Will increase to: Nifedipine 60mg ER QAM and Nifedipine 30 mg ER QPM. Will monitor for a few hours prior to discharge and discharge if BP are appropriate. Pre-E labs are reassuring. Overnight patient had no complaints. Her pain is well controlled on oral pain medications. She is tolerating a regular diet. She has passed flatus. She is ambulating without difficulty. Lochia is scant. She is urinating without conn. Patient denies chest pain, SOB, n/v, headache, RUQ pain, vision changes, dizziness. Peripartum Data Procedures: Procedures Operation Date: 12/17/24 05:30 Actual Procedure Side Surgeon p Section Nanci Bailey MD Infant Gender: Female Time Spent with Patient Time attestation: Total time spent providing and/or coordinating discharge services: Discharge Plan Discharge Disposition: Home, Self-Care Date of Admission: 12/16/24 16:07 Attending Provider on Discharge: Yanet Miller Consulting Providers: Isiah Cheung; Myrna Hays Primary Care Provider: Skip Jacques Condition: Stable Anticipated Discharge Date/Time: 12/20/24 09:24 Discharge Medications: New acetaminophen 500 mg Tablet 1,000 mg PO Q6H PRN (Reason: Pain) 30 Days Qty: 60 0RF ferrous sulfate 325 mg (65 mg iron) Tablet 325 mg PO Q48H 30 Days Qty: 15 0RF docusate sodium 100 mg Capsule 100 mg PO DAILY 30 Days Qty: 30 0RF ibuprofen 600 mg Tablet 600 mg PO Q6H PRN (Reason: Pain) 30 Days Qty: 60 0RF Lanolin (HPA) 100 % Cream 1 applic topical Q1H PRNQty: 7 1RF nifedipine 30 mg Tablet Extended Release 60 mg PO QAM 30 Days Qty: 60 0RF simethicone 80 mg Tablet,Chewable 80 - 160 mg PO Q4H PRN (Reason: Gas) 30 Days Qty: 30 0RF oxycodone 5 mg Tablet 5 mg PO Q6H PRN (Reason: Pain) 14 Days Qty: 15 0RF nifedipine 30 mg tablet extended release 30 mg PO QPM Qty: 30 2RF Continued cholecalciferol (vitamin D3) 125 mcg (5,000 unit) capsule 125 mcg PO QDAY DHA 200 mg capsule 200 mg PO DAILY PRN Discontinued aspirin [Adult Low Dose Aspirin] 81 mg tablet,delayed release (DR/EC) 81 mg PO QDAY Discharge Orders: Discharge Order (Routine); Ordered 12/20/24 Ordered By: Yanet Miller Patient Education: Preeclampsia and Eclampsia After Delivery (GEN) Additional Instructions: POSTOPERATIVE INSTRUCTIONS ACTIVITY No heavy lifting/pushing/pulling for 4-6 weeks. Do not lift anything more than about 10-15 lbs (such as laundry, groceries, children, pets), vacuum, push heavy doors or grocery carts, etc. You may climb stairs as tolerated. Do not put anything in the vagina for 6 weeks after surgery unless otherwise instructed by your doctor (including tampons, douching, sexual intercourse, etc). No driving for about 2 weeks after surgery, while you are taking narcotic pain medication, or until you feel that you are ready. Practice checking your blind spot and stepping hard on the brake. Avoid sitting or lying in bed for more than 2 hours at a time while you are awake to reduce your risk of blood clots. You may return to work when directed by your physician. Please contact your doctor if you need any return to work letters or medical leave paperwork to be completed. WOUND CARE You will have one large incision on your abdomen. There will be dissolvable stitches under your skin that do not need to be removed. Shower daily after surgery. Clean your incision with mild antibacterial soap and water. Pat your incision dry with a clean towel. No tub baths until wound is completely healed. Wash your hands frequently, especially before touching your incision, changing any dressings, after using the restroom, and before eating. PAIN MANAGEMENT Take your oral pain medication as needed. You should be taking Ibuprofen 600mg every 6 hours with 1 gram of Tylenol every 6 hours. You can take these together every six hours or alternate them every 3 hours. You should then take the oxycodone as needed if you have breakthrough pain on top of the Tylenol and Ibuprofen. Some pain medications can cause constipation so you should take a stool softener (i.e. colace) while you are on these medications. You may also take milk of magnesia or Miralax for constipation. WHAT TO EXPECT AT HOME Recovery from surgery is generally 4-6 weeks, but sometimes longer for more strenuous activity. It is normal to be very tired during this time. It is normal to have some drainage or a small amount of vaginal bleeding after surgery which may last up to 6 weeks. You may go home with a conn catheter in your bladder. You will need to follow up for a nurse visit in 7-10 days for removal. You will most likely experience gas pain, abdominal swelling, or shoulder pain for 24-72 hours after surgery. A warm shower, heating pad, and/or walking may help. WHEN TO CALL YOUR DOCTOR : Fever (>100.4?F or 38.0?C) or chills. Incision problems such as redness, warmth, swelling, or foul smelling drainage. Severe nausea or persistent vomiting. Bright red vaginal bleeding (soaking >2 pad/hour) or foul smelling vaginal drainage. Severe pain not relieved with pain medication. Pain and swelling in your legs, especially if it is only on one side and not the other. Pain with urination, cloudy urine, or foul smelling urine. Difficulty in emotions, mood and functions Thoughts of hurting yourself and/or Painful, reddened area in your breast Any drainage, redness or tenderness in your IV/epidural site Severe headache that doesn't improve after taking medications Changes in vision, including temporary loss of vision, blurred vision, and/or light sensitivity Upper abdominal pain (usually under ribs on the right side) Or if you have any other problems or questions. CALL 911 OR GO TO THE EMERGENCY ROOM IF YOU HAVE: Any shortness of breath, difficulty breathing, or chest pain. - Follow up in 5 days for incision check and BP check in clinic - Follow Up: follow-up at 2 weeks and 6 weeks in clinic Follow Up Appointments: Skip Jacques MD [Primary Care Provider] - Forms: [facility] Info Instructions
[2024-12-20] MEDS: DOCUSATE SODIUM 100 MG CAPSULE PO (09:46)
--- NOTE | 2024-12-20 19:22 | PC.NURSE ---
Patient utilizing [facility] to sisal picker evening and morning doese of Nifedipine due to pharmacy being closed at time of discharge and not opening until 1000 the following morning. Order for [employer] from Dr. Miller.
== END 2024-12-20 19:30 | disposition home or self-care (01) | DRG 540 ==
PROVIDERS: Advanced Practice Midwife; Obstetrics & Gynecology; Admitting Provider Midwife; PCP Family Medicine; Visit Provider Midwife
PROC: 10D00Z1 Extraction of Products of Conception, Low, Open Approach (ICD-10-PCS; CPT 59514; principal; 2024-12-17 05:30)
DX: O14.14 Severe pre-eclampsia complicating childbirth (principal); O76 Abnormality in fetal heart rate and rhythm complicating labor and delivery; Q27.0 Congenital absence and hypoplasia of umbilical artery; Z59.19 Other inadequate housing; O90.81 Anemia of the puerperium; D62 Acute posthemorrhagic anemia; G89.18 Other acute postprocedural pain; Z3A.36 36 weeks gestation of pregnancy; Z37.0 Single live birth
CPT/HCPCS: 01967; 01968; 36415; 59025; 59200; 64488; 76942; 82565; 82570; 83735; 84112; 84156; 84450; 84460; 84520; 85018; 85027; 85049; 85384; 85610; 85730; 86592; 86850; 86900; 86901; 88307; 94761; 99140; G0463; A9270; J0456; J0665; J0666; J0690; J1885; J2590; J2795; J3010; J3475; J7050; J7120

== ENCOUNTER 2025-01-01 11:06 | Outpatient (CLI) | payer BC, SELFPAY ==
--- NOTE | 2025-01-01 16:14 | P.LACCB_ITS ---
Consult Note - Mom Date of Visit Date of visit: 01/01/25 Reason for consultation: Assistance Needed (assess latch, milk transfer) Visit Code: Visit Patient's Information Phone number: [phone] Para: 1 Allergies No Known Drug Allergies Allergy (Verified 12/29/24 16:42) Mother's Medical History: Medical History (Updated 12/23/24 @ 00:01 by Background Daemon) Migraine with aura ?G43.109 - Migraine with aura, not intractable, without status migrainosus (ICD-10) Work Plans: return to work at 12 weeks Delivery Information Delivery type: Primary C/S; Labored Gestational Age: 37 Gestational Weight For Age: AGA Weight: 2.57 kg Discharge Weight: 2.35 kg Percentage weight loss: 8.6 Baby's Information Baby's Age at Visit: 15 days Baby's Provider or Clinic: [facility] Jaundice: No Past Experience Past Experience: No Current Frequency of Day Feedings: was every 2.5-3, now mostly every 2 hrs Frequency of Night Feedings: same Both Breasts: Yes Suck: strong and then gets sleepy Latch: wide, deep, comfortable Length of Time: 5-10 min ea side Goals: 1 year Pumping Pumping: Yes Quantity Pumped: 2oz ea side, 1-2 times/day Supplementing EBM Supplement: Yes (occas taking 1oz after if won't latch to both breasts) Formula Supplement: No Baby Elimination Number of Wet Diapers a Day: ea feeding Number of BM a Day: ea feeding; yellow, seedy Breast/Nipple Condition Breast Information: Breasts are symmetrical with rounded lower quadrants, intramammary distance is less than 1.5 inches. No erythema. Nipples are supple, everted prior to feeding. Breast Shape: Round Engorgement: No Maternal Nipple Condition - Left: Common Nipple Maternal Nipple Condition - Right: Common Nipple Sore Nipples: Yes Interventions for Sore Nipples: Lansinoh/Nipple Cream Baby Assessment Skin: Normal Tongue/frenulum: Restricted mid-range and Other (TABBY score 4-5) Palate: Average Lips: Relaxed and Symmetrical Jaw Alignment: Symmetrical Mucosa: [place], moist Onsite Observation Pre-Feed weight: 2.756 kg (up 396 gms in 10 days) Post-Feed weight: 2.814 kg Milk Transferred (mL): 58 Position: Cross cradle and Football Attachment/latch-on achieved: With difficulty Suck pattern: Suck burst and normal rest Swallow: Audible, consistent Behavior following feed: Relaxed, sleepy (needed a little stimulation to waken enough to feed on 2nd breast, but was able to engage in feeding) Pre-Nursing Left Nipple: Within Normal Limits Pre-Nursing Right Nipple: Within Normal Limits Post-Nursing Left Nipple: Creased/Beveled Post-Nursing Right Nipple: Creased/Beveled Assessments/Interventions Assessments/Interventions: observation: Maribel latched well and nurses strongly for about 8 minutes on each side; needed some coaxing to wake enough for feeding on 2nd breast but then engaged well and nursed strongly for 8 minutes. Mom's nipple slightly creased at edges; discussed this in relation to tethered oral tissues. Mom reports not painful at the moment; discussed continuing to work on wide, deep latch for maximal milk transfer and decrease nipple trauma. Discussed TABBY score for tongue ties: Carolyne a 4-5 which may or may not cause feeding problems Discussed movements of tongue needed for feedings and currently seems Carolyne is able to accomplish feeding effectively If feedings become more problematic or weight gain begins to decline, consider evaluation for release. Resources given to family for consideration if needed. Education provided: Early feeding cues to maximize timing of latching, Asymmetric latch technique for wide/deep latch to increase milk, Transfer for baby and increase comfort for mom, Supply/demand nature of milk supply, Alternative feeding methods (SNS, cup, finger feeding, bottling) and Pumping for milk management Handouts Provided: TABBY tongue assessment tool for information Tongue release resources Feeding Plan: Continue feeding every 2-3 hours; offer both breasts ea feeding; if maribel won't latch to both offer supplement of 1oz after to be sure adequate calories consumed Recognize baby may need a short break between sides Discussed role of pumping to maintain supply if baby not feeding off both breasts as well as if desire to have a few bags of milk in the freezer if needed Follow-Up Suggested follow up: Appointment as needed Time Spent Time spent with patient (min): 90 (reviewing EMR and face to face with patient, and ) Meds Home Medications and Allergies Home Medications ?Medication ?Instructions ?Recorded ?Confirmed ?Type docosahexaenoic acid 200 mg 200 mg PO DAILY PRN 06/05/24 12/29/24 History capsule ( DHA) cholecalciferol (vitamin D3) 125 125 mcg PO QDAY 08/21/24 12/29/24 History mcg (5,000 unit) capsule docusate sodium 100 mg capsule 100 mg PO DAILY 30 days #30 caps 12/20/24 12/29/24 Rx ferrous sulfate 325 mg (65 mg 325 mg PO Q48H 30 days #15 tabs 12/20/24 12/29/24 Rx iron) tablet ibuprofen 600 mg tablet 600 mg PO Q6H PRN Pain 30 days #60 12/20/24 12/29/24 Rx tabs modified lanolin 100 % topical 1 applic topical Q1H PRN #7 grams 12/20/24 12/29/24 Rx cream (Lanolin (HPA)) nifedipine 30 mg tablet,extended 60 mg (2 x 30 mg) PO QAM 30 days 12/20/24 12/29/24 Rx release #60 tabs nifedipine 30 mg tablet,extended 60 mg (2 x 30 mg) PO QPM #30 tabs 12/20/24 12/29/24 Rx release Allergies Allergy/AdvReac Type Severity Reaction Status Date / Time No Known Drug Allergies Allergy Verified 12/29/24 16:42
== END 2025-01-01 11:07 | disposition home or self-care (01) ==
PROVIDERS: Visit Provider Obstetrics & Gynecology
DX: Z39.1 Encounter for care and examination of lactating mother (principal)
CPT/HCPCS: G0463

== ENCOUNTER 2025-02-18 09:26 | Outpatient (CLI) | payer BC, SELFPAY | END 2025-02-18 09:27 | disposition home or self-care (01) | PROVIDERS: PCP Family Medicine; Visit Provider Family Medicine | DX: E83.52 Hypercalcemia (principal); D64.9 Anemia, unspecified; I10 Essential (primary) hypertension; Z13.6 Encounter for screening for cardiovascular disorders | CPT/HCPCS: 80053; 80061; 82306; 84443 ==

== ENCOUNTER 2025-02-19 09:40 | Outpatient (CLI) | payer BC, SELFPAY | END 2025-02-19 09:41 | disposition home or self-care (01) | LOC: NFLDREF 02-24 03:37 | PROVIDERS: PCP Family Medicine; Referring Provider Family Medicine; Visit Provider Family Medicine | DX: E83.52 Hypercalcemia (principal); D64.9 Anemia, unspecified | CPT/HCPCS: 80048; 83970 ==

== ENCOUNTER 2025-03-23 08:40 | Outpatient (CLI) | payer BC, SELFPAY | END 2025-03-23 08:41 | disposition home or self-care (01) | LOC: NFLDREF 03-25 15:21 | PROVIDERS: PCP Family Medicine; Referring Provider Family Medicine; Visit Provider Family Medicine | DX: E83.52 Hypercalcemia (principal) | CPT/HCPCS: 80048; 83970 ==